=== PATIENT | male | born 1955 | race African-American/Black ===

== ENCOUNTER 2017-06-27 09:59 | Emergency (ER) | payer MEDICAID, MEDICARE ==
[2017-06-27 10:42] LABS: Bilirubin Negative (Negative); Blood, Urine Small (Negative); Clarity TURBID (Clear); Glucose, Urine (Dipstick) >=1000 mg/dL (Negative); Leukocyte Moderate (Negative); Nitrite Positive (Negative); Protein, Urine (Dipstick) Negative (Neg-Trace); Specific Gravity, Urine 1.035 (1.002-1.036); pH, Urine 6.5 (5.0-9.0)
[2017-06-27 10:44] LABS: Pathc Cast-AUWi Flag 0.95 (0-2.49)
[2017-06-27 10:45] LABS: Yeast-AUWi Flag 386.4 (0-25.0)
[2017-06-27 10:52] LABS: RBC/HPF 0-3 HPF (0-3)
[2017-06-27 10:53] LABS: Bacteria/HPF 3+ HPF (None Seen); Hyaline Casts/LPF NONE SEEN LPF (0-3 Hyaline); Squamous Epithelial 0-3 HPF (0-3); Yeast-All Forms None Seen HPF (None Seen)
[2017-06-27] MEDS ORDERED: Cephalexin 250 MG CAP ONE (11:27)
[2017-06-27] MEDS ORDERED: metFORMIN 500 MG TAB PO SCH (11:30)
== END 2017-06-27 11:54 | disposition home or self-care (01) ==
LOC: ERS 09:59
DX: N12 Tubulo-interstitial nephritis, not specified as acute or chronic (principal); E11.65 Type 2 diabetes mellitus with hyperglycemia; N40.0 Benign prostatic hyperplasia without lower urinary tract symptoms; I10 Essential (primary) hypertension; F17.210 Nicotine dependence, cigarettes, uncomplicated
CPT/HCPCS: 51701; 81001

== ENCOUNTER 2017-07-03 11:38 | Inpatient (IN) | payer MEDICARE, OTHER ==
[2017-07-03 13:08] LABS: #Lymphocytes 0.8 thou/uL (1.20-3.40); #Monocytes 0.6 thou/uL (0.11-0.59); #Neutrophils 14.2 thou/uL (1.40-6.50); %Basophils 0.1 % (0.0-1.0); %Eosinophils 0.2 % (0.0-10.0); %Lymphocytes 4.8 % (21.0-51.0); %Monocytes 3.7 % (0.0-10.0); %Neutrophils 91.1 % (42.0-75.0); Hemoglobin 12.5 g/dL (14.0-18.0); Mean Corpuscular HGB CONC 31.1 g/dL (32.0-36.0); Mean Corpuscular Hemoglobin 27.8 pg (27.0-31.0); Mean Corpuscular Volume 89.3 fl (80.0-94.0); Mean Platelet Volume 6.8 fL (7.4-10.4); Platelet Count 324 thou/uL (130-400); RBC Distribution Width 13.4 % (11.5-14.5); Red Blood Cell (RBC) Count 4.52 mill/uL (4.70-6.10); White Blood Cell (WBC) Count 15.6 thou/uL (4.8-10.8)
[2017-07-03 13:23] LABS: ALT (SGPT) 15 U/L (8-55); AST (SGOT) 19 U/L (5-34); Albumin 3.2 g/dL (3.4-4.8); Alkaline Phosphatase 91 U/L (40-150); Anion Gap 16 mmol/L (10-20); BUN (Urea Nitrogen) 12 mg/dL (8.4-25.7); Bilirubin, Total 0.5 mg/dL (0.2-1.2); Calc. Creatinine Clearance 0 mL/min (70-130); Calcium 9.3 mg/dL (7.8-10.44); Carbon Dioxide 21 mmol/L (23-31); Chloride 105 mmol/L (98-107); Estimated GFR-MDRD 74; Globulin 3.8 g/dL (2.4-3.5); Lipase 6 U/L (8-78); Magnesium 1.7 mg/dL (1.6-2.6); Phosphorus 2.8 mg/dL (2.3-4.7); Potassium 3.9 mmol/L (3.5-5.1); Sodium 138 mmol/L (136-145)
[2017-07-03 13:25] LABS: Glucose 598 mg/dL (80-115)
[2017-07-03 13:26] LABS: CKMB 1.1 ng/mL (0-6.6); Troponin I 0.028 ng/mL (< 0.028)
[2017-07-03] MEDS ORDERED: Insulin Regular 300 UNITS/3 ML VIAL ONE (13:40)
[2017-07-03] MEDS ORDERED: ISOVUE-370 76%-LOCM 1 ML ONE (14:02)
[2017-07-03 15:23] LABS: Anion Gap 12 mmol/L (10-20); BUN (Urea Nitrogen) 11 mg/dL (8.4-25.7); Calc. Creatinine Clearance 0 mL/min (70-130); Calcium 8.5 mg/dL (7.8-10.44); Carbon Dioxide 24 mmol/L (23-31); Chloride 106 mmol/L (98-107); Estimated GFR-MDRD 85; Glucose 419 mg/dL (80-115); Potassium 3.5 mmol/L (3.5-5.1); Sodium 138 mmol/L (136-145)
[2017-07-03 17:03] LABS: Bilirubin Negative (Negative); Blood, Urine Moderate (Negative); Clarity CLOUDY (Clear); Glucose, Urine (Dipstick) >=1000 mg/dL (Negative); Leukocyte Moderate (Negative); Nitrite Negative (Negative); Protein, Urine (Dipstick) Negative (Neg-Trace); Specific Gravity, Urine 1.021 (1.002-1.036); Urobilinogen 0.2 mg/dL (0.2-1.0)
[2017-07-03 17:15] LABS: Bacteria/HPF 1+ HPF (None Seen); Hyaline Casts/LPF 0-3 HYALINE CAST LPF (0-3 Hyaline); Pathc Cast-AUWi Flag 0.27 (0-2.49); Squamous Epithelial None Seen HPF (0-3)
[2017-07-03 17:16] LABS: Yeast-AUWi Flag 60.9 (0-25.0)
[2017-07-03 17:26] LABS: RBC/HPF 0-3 HPF (0-3); Yeast-All Forms None Seen HPF (None Seen)
[2017-07-03] MEDS ORDERED: Heparin 1,000 UNITS/ML VIAL ONE (17:30)
[2017-07-03] MEDS ORDERED: Insulin Detemir 100 UNITS/ML 15 UNITS in Pre-Filled Syringe 1 EACH SC SCH ×2 (18:30→22:15)
[2017-07-03] MEDS ORDERED: cefTRIAXone\\ROCEPHIN 1 GM, Syringe 0.4 ML in Sterile Water 9.6 ML SLOW IVP SCH (19:00)
[2017-07-03] MEDS ORDERED: Acetaminophen 500 MG TAB ONE (19:52)
--- NOTE | 2017-07-03 20:42 | CT ---
EXAM: ABDOMEN CT WITH CONTRAST PELVIC CT WITH CONTRAST 07/03/17 HISTORY: Abdominal pain. Polyuria times several weeks. Polyphagia and polydipsia. COMPARISON: 07/10/14. TECHNIQUE: Abdomen and pelvic CT are performed with IV contrast. Enteric contrast was also administered. Coronal reformatted images are submitted for interpretation. FINDINGS: Atelectatic changes in the lung bases. Heart size is within normal limits. No pericardial effusion. T he visualized aorta has an overall normal caliber. Symmetric attenuation of the psoas muscles. Intra and extrahepatic portal vein is patent. The liver, spleen, and adrenal glands have appropriate enhancement. There is atrophy of the pancreas. No obvious inflammation. No gastrohepatic, retrocrural or periportal lymphadenopathy. No mesenteric mass, lymphadenopathy or free air. There is a small amount of fluid in Schaefer's pouch . There is fluid in the right pericolic gutter and there is stranding and fluid in the right perineph jeannie space. The etiology of this fluid is uncertain but may be secondary to the right kidney. There is mild prominence of the right intrarenal collecting system and right renal pelvis. The proximal right ureter also appears to be slightly prominent. No evidence of an obstructive calculus in the right in tra or extrarenal collecting system. Left intra and extrarenal collecting system is unremarkable. The re is symmetric enhancement of the kidneys. Limited evaluation of the gastric mucosa, duodenum and proximal small bowel loops. Mid small bowel lo ops appear to be unremarkable. Evaluation of the alimentary canal is limited by motion degradation. S uggestion of a normal caliber appendix. Ileocecal junction is unremarkable. Fecal material and contra st is noted throughout the colon. No obvious colon abnormality. Again, limited evaluation due to laura on degradation. There is a moderate amount of fecal material throughout the colon. Correlate clinical ly for constipation. PELVIC CT: There is enlarged prostate gland measuring 4.2 x 6.4 cm. There is mass effect upon the floor of the u rinary bladder. Mild mucosal thickening of the floor of the urinary bladder which is nonspecific. Non emergent cystoscopy is recommended. No pelvic mass, lymphadenopathy, free air of free fluid. There are no lytic or blastic lesions in the osseous structures. IMPRESSION: 1. Predominantly right abdominal fluid of uncertain etiology. It is presumed that the inflammato ry change is centered about the right kidney. Correlate clinically for an ascending urinary tract inf ection. There is mild dilatation of the right intrarenal collecting system. The possibility of a rece ntly passed calculus cannot be excluded. Correlate clinically. Better interrogation with retrograde I [employer]OWS TECH[employer]ICAL [employer]IST or CT urogram can be performed. 2. Limited evaluation of the alimentary canal. Copious amount of fecal material is suggested thr oughout the colon. Correlate clinically for constipation. POS: PPP
[2017-07-03] MEDS ORDERED: Acetaminophen 650 MG Suppository PR PRN (21:39)
[2017-07-03] MEDS ORDERED: Ondansetron ODT 4 MG TAB PO PRN (21:39)
[2017-07-03] MEDS ORDERED: HumaLOG 300 UNITS/3 ML VIAL SC PRN ×2 (21:39)
[2017-07-03] MEDS ORDERED: Dextrose 50% Abboject 50 ML SYRINGE SLOW IVP PRN (21:39)
[2017-07-03] MEDS ORDERED: Dextrose 5% in Water 1,000 ML IV PRN (21:39)
[2017-07-03] MEDS ORDERED: Bisacodyl 5 MG TAB PO PRN (21:39)
[2017-07-03] MEDS ORDERED: Ondansetron HCl/PF 4 MG/2 ML Vial IVP PRN (21:39)
[2017-07-03] MEDS ORDERED: Docusate 100 MG CAP PO SCH (22:15)
[2017-07-03 22:29] VITALS: BMI 21.7
[2017-07-03] MEDS: Sodium Chloride 0.9% 1,000 ML IV SCH (22:42)
[2017-07-03] MEDS: Docusate 100 MG CAP PO SCH (22:42)
[2017-07-03] MEDS: Acetaminophen 325 MG TAB PO PRN (22:42)
[2017-07-03] MEDS: Insulin Detemir 100 UNITS/ML 15 UNITS in Pre-Filled Syringe 1 EACH SC SCH (22:44)
--- NOTE | 2017-07-03 22:50 | HP ---
PRIMARY CARE PHYSICIAN: Suyz Degroot M.D. CHIEF COMPLAINT: Abdominal pain and hyperglycemia. HISTORY OF PRESENT ILLNESS: This is a 62-year-old -[place] male, insulin-dependent diabetic with a history of previous DKA episodes. He was brought in by EMS. He reported some abdominal pain along with problems with urination though he was not able to give more specific details, did say even peeing a lot and eating a lot, sometimes will state that he has had some pain with urination, other times deny it, could not give a length of time that has been going on for. The patient was brought in by EMS and noted to have a blood sugar greater than 400. He was also constantly asking for water, he was given a liter of normal saline on the way in. In the emergency room, patient had persistent hyperglycemia. He got IV insulin along with a couple of liters of fluid with some mild improvement in the blood sugars, though they started to come back up again. He also was noted to have some tenderness to palpation of his abdomen, but nothing focal. He was found to have no acidosis or anion gap. His urinalysis did show too many to count white blood cells as well as lots of glucose and his CT scan of the abdomen did show some mild stranding around the right kidney and ureter which were slightly prominent. He also had a leukocytosis and was mildly tachycardic consistent with a UTI/pyelonephritis with sepsis. PAST MEDICAL HISTORY: The patient is unable to give past medical history and does not answer most questions, mostly just asked for water to drink. Most of the past medical history is taken from the ER chart and previous records when he was admitted here multiple times back in 2015 for diabetic ketoacidosis. 1. Hypertension. 2. Diabetes mellitus type 2, insulin-dependent. 3. Dyslipidemia. 4. Benign prostatic hyperplasia. 5. Cardiomyopathy. PAST SURGICAL HISTORY: 1. Bilateral knee surgery. 2. Right ankle surgery. 3. Tonsillectomy. 4. Colostomy with reversal. 5. Right finger surgery. PAST PSYCHIATRIC HISTORY: None. SOCIAL HISTORY: The patient smokes a half pack per day and drinks less than 5 drinks per day. He does use cocaine. FAMILY HISTORY: No significant family history of coronary artery disease or cancer. MEDICATIONS: 1. Lantus 15 units subcutaneously twice per day 2. Metformin 500mg po twice per day REVIEW OF SYSTEMS: Unable to obtain secondary to patient's refusal or possibly altered mental status. See HPI for other things I was able to obtain. PHYSICAL EXAMINATION: VITAL SIGNS: Blood pressure 137/74, pulse 95 down from 103 previously, respirations 19 down from 24 on presentation. Temperature 98.7, O2 sat 98% on room air. GENERAL: The patient is currently denying any significant pain. This is a thin male who appears mildly confused, but in no respiratory distress. HEENT: Pupils equal, round, and reactive to light. Oropharynx with dry mucous membranes. NECK: Supple, no lymphadenopathy, no thyroid nodules or enlargement, no JVD. HEART: Regular rate and rhythm, no murmurs, rubs or gallops. LUNGS: Clear to auscultation bilaterally, no wheezes, crackles or rhonchi. ABDOMEN: Soft, diffusely mild tenderness to palpation with mild guarding, but no rebound tenderness and he has normoactive bowel sounds, no masses palpable. EXTREMITIES: Thin extremities with good pulses and no significant deformities. SKIN: No rashes or other lesions noted. NEUROLOGIC: He appears to be moving all of his extremities equally and has no facial droop. He will follow basic commands, but nothing complicated. LABORATORY DATA: CBC with a white blood cell count of 15.6, neutrophil predominance of 91%. Hemoglobin 12, hematocrit 40, platelet count 324. Complete metabolic panel initially notable for carbon dioxide of 21, glucose of 598, albumin of 3.2. Repeat basic metabolic panel later showed a carbon dioxide of 24. No anion gap, glucose down to 419, cardiac marker set negative x1. Urinalysis did show greater than 1000 glucose, moderate blood, moderate leukocyte esterase with greater than 50 to too numerous to count white blood cells, and 1+ bacteria. Serum was positive for beta hydroxybutyrate mild elevation at 0.9. Abdomen CT and pelvis that showed the results as above. ASSESSMENT AND PLAN: 1. Urinary tract infection with right-sided pyelonephritis. The patient has not received Rocephin, we will draw blood cultures before they give that first dose in the emergency room. I have also ordered a urine culture. I have also given another liter of fluid down here in the emergency room as he still looks clinically a little bit dry. 2. Sepsis. Secondary to #1 3. Diabetes mellitus type 2 with hyperglycemia. We have given the patient 15 units of Lantus in the emergency room. We will continue it twice a day in the hospital and will get fingerstick blood sugars q.a.c. and at bedtime along with a moderate insulin sliding scale. 4. Metabolic encephalopathy. Patient seems a little bit confused, although according to the nurse, he is very aggressive and ewing with him, he actually will respond and provide more information and respond better. His altered mental status is likely secondary to his infection and should improve with fluids and antibiotics. 5. History of cocaine abuse. We will check a urine drug screen as this also may be a source of altered mental status. 6. Gastrointestinal prophylaxis. Put the patient on Pepcid twice a day. 7. Deep venous thrombosis prophylaxis, put patient on Lovenox. 8. Code status, unable to clarify this with the patient at this time due to his altered mental status and no family present. This will need to be elucidated better as his mental status clears in the hospital. ROXANNA
[2017-07-04 05:10] LABS: Amphetamine Not Detected (NotDetected); Barbiturates Screen Not Detected (NotDetected); Benzodiazepine Screen Not Detected (NotDetected); Cocaine Metabolite Screen Not Detected (NotDetected); Medtox Control Line Valid? VALID (VALID); Medtox Reader # READER 1; Methadone Not Detected (NotDetected); Methamphetamine Not Detected (NotDetected); Opiate Screen Not Detected (NotDetected); Oxycodone Screen Not Detected (NotDetected); Phencyclidine (PCP) Not Detected (NotDetected); THC/Cannabinoid Screen Not Detected (NotDetected); Tricyclic Screen Not Detected (NotDetected)
[2017-07-04 05:14] LABS: #Lymphocytes 1.3 thou/uL (1.20-3.40); #Monocytes 0.7 thou/uL (0.11-0.59); #Neutrophils 10.2 thou/uL (1.40-6.50); %Basophils 0.3 % (0.0-1.0); %Eosinophils 0.4 % (0.0-10.0); %Lymphocytes 10.7 % (21.0-51.0); %Monocytes 5.6 % (0.0-10.0); Hemoglobin 11.2 g/dL (14.0-18.0); Mean Corpuscular HGB CONC 30.4 g/dL (32.0-36.0); Mean Corpuscular Hemoglobin 27.1 pg (27.0-31.0); Mean Corpuscular Volume 89.1 fl (80.0-94.0); Platelet Count 263 thou/uL (130-400); RBC Distribution Width 13.6 % (11.5-14.5); Red Blood Cell (RBC) Count 4.15 mill/uL (4.70-6.10); White Blood Cell (WBC) Count 12.3 thou/uL (4.8-10.8)
[2017-07-04 05:24] LABS: Anion Gap 12 mmol/L (10-20); BUN (Urea Nitrogen) 9 mg/dL (8.4-25.7); Calc. Creatinine Clearance 120 mL/min (70-130); Calcium 8.4 mg/dL (7.8-10.44); Carbon Dioxide 24 mmol/L (23-31); Chloride 108 mmol/L (98-107); Estimated GFR-MDRD Greater than 90; Glucose 145 mg/dL (80-115); Potassium 3.5 mmol/L (3.5-5.1); Sodium 140 mmol/L (136-145)
[2017-07-04] MEDS: Insulin Detemir 100 UNITS/ML 15 UNITS in Pre-Filled Syringe 1 EACH SC SCH ×2 (09:23→20:50)
[2017-07-04] MEDS: Docusate 100 MG CAP PO SCH (09:23)
[2017-07-04] MEDS: Enoxaparin Sodium 40 MG/0.4 ML SYRINGE SC SCH (09:23)
[2017-07-04] MEDS: Sodium Chloride 0.9% 1,000 ML IV SCH ×2 (09:24→20:49)
[2017-07-04] MEDS ORDERED: Chloraseptic Spray 180 ml Bottle PO PRN (10:12)
[2017-07-04] MEDS ORDERED: Calcium Carbonate 500 MG ChewTAB PO PRN (10:12)
[2017-07-04] MEDS ORDERED: Artificial Tears 18 DROP/0.9 ML EA EYE PRN (10:12)
[2017-07-04] MEDS ORDERED: hydrALAZINE 20 MG/ML VIAL SLOW IVP PRN (10:12)
[2017-07-04] MEDS ORDERED: Mag-Al 1200 mg/1200 mg/30 ML UDCUP PO PRN (10:12)
[2017-07-04] MEDS ORDERED: Milk Of Magnesia 30 ML UDCUP PO PRN (10:12)
[2017-07-04] MEDS ORDERED: Diabetic Tussin 200 MG/10 ML UDCUP PO PRN (10:12)
[2017-07-04] MEDS ORDERED: HYDROcodone/Acetaminophen 5/325 mg Tablet PO PRN (10:12)
[2017-07-04] MEDS ORDERED: Loratadine 10 MG TAB PO PRN (10:12)
[2017-07-04] MEDS ORDERED: Eucerin (Mineral Oil/Petrolatum,White) 30 gm Jar TOP PRN (10:12)
[2017-07-04] MEDS ORDERED: Loperamide HCl 2 MG CAP PO PRN (10:12)
[2017-07-04] MEDS ORDERED: Sodium Chloride 0.65% Nasal 44 ML BOT EA NARE PRN (10:12)
[2017-07-04] MEDS ORDERED: Temazepam 15 MG CAP PO PRN (10:12)
[2017-07-04] MEDS ORDERED: cefTRIAXone\\ROCEPHIN 1 GM in Sodium Chloride 0.9% 100 ML IVPB SCH (10:15)
[2017-07-04] MEDS ORDERED: cefTRIAXone\\ROCEPHIN 1 GM, Syringe 0.4 ML in Sterile Water 9.6 ML SLOW IVP SCH (11:00)
--- NOTE | 2017-07-04 11:48 | PDOC.PN ---
- Subjective Encounter Start Date: 07/04/17 Encounter Start Time: 08:50 -: old records requested/rev Patient seen and examined. No new complaints. No overnight events has back pain - Objective Resuscitation Status: Resuscitation Status FULL:Full Resuscitation MAR Reviewed: Yes Vital Signs & Weight: Vital Signs (12 hours) Temp Pulse Resp BP Pulse Ox 07/04/17 08:00 98.5 F 87 16 99 07/04/17 07:22 98.5 F 87 16 109/66 99 07/04/17 04:00 98.8 F 87 18 128/75 97 07/04/17 00:00 99.0 F 84 20 123/70 98 Weight Weight 178 lb 6 oz Result Diagrams: 07/04/17 04:26 07/04/17 04:26 Additional Labs: Accuchecks 07/04/17 07/04/17 07/03/17 04:00 01:57 22:43 POC Glucose 174 H 217 H 363 H 07/03/17 20:23 POC Glucose 327 H Radiology Reviewed by me: Yes Phys Exam - Physical Examination Constitutional: NAD HEENT: PERRLA, moist MMs, sclera anicteric Neck: no JVD, supple Respiratory: no wheezing, no rales, no rhonchi Cardiovascular: RRR, no significant murmur, no rub Gastrointestinal: soft, non-tender, no distention, positive bowel sounds cva tenderness on right side Musculoskeletal: no edema, pulses present Neurological: non-focal, normal sensation, moves all 4 limbs Psychiatric: normal affect, A&O x 3 Skin: no rash, normal turgor Dx/Plan (1) Hyperglycemia due to type 2 diabetes mellitus Code(s): E11.65 - TYPE 2 DIABETES MELLITUS WITH HYPERGLYCEMIA Status: Acute (2) UTI (urinary tract infection) Status: Acute Qualifiers: Urinary tract infection type: acute pyelonephritis Qualified Code(s): N10 - Acute pyelonephritis (3) BPH (benign prostatic hyperplasia) Code(s): N40.0 - BENIGN PROSTATIC HYPERPLASIA WITHOUT LOWER URINRY TRACT SYMP Status: Chronic (4) DM type 2 (diabetes mellitus, type 2) Status: Chronic (5) HTN (hypertension) Code(s): I10 - ESSENTIAL (PRIMARY) HYPERTENSION Status: Chronic - Plan cont current plan of care, continue antibiotics * continue rocephin and levaquin * continue IVF * will resume selected home meds * will control his diabetes * medication reviewed as below * symptomatic treatment * follow culture. Review of Systems - Review of Systems Constitutional: negative: fever, chills, sweats, weakness, malaise, other Eyes: negative: Pain, Vision Change, Conjunctivae Inflammation, Eyelid Inflammation, Redness, Other ENT: negative: Ear Pain, Ear Discharge, Nose Pain, Nose Discharge, Nose Congestion, Mouth Pain, Mouth Swelling, Throat Pain, Throat Swelling, Other Respiratory: negative: Cough, Dry, Shortness of Breath, Hemoptysis, SOB with Excertion, Pleuritic Pain, Sputum, Wheezing Cardiovascular: negative: chest pain, palpitations, orthopnea, paroxysmal nocturnal dyspnea, edema, light headedness, other Gastrointestinal: negative: Nausea, Vomiting, Abdominal Pain, Diarrhea, Constipation, Melena, Hematochezia, Other Genitourinary: negative: Dysuria, Frequency, Incontinence, Hematuria, Retention , Other Musculoskeletal: Back Pain. negative: Neck Pain, Shoulder Pain, Arm Pain, Hand Pain, Leg Pain, Foot Pain, Other - Medications/Allergies Allergies/Adverse Reactions: Allergies Allergy/AdvReac Type Severity Reaction Status Date / Time milk Allergy ULCERS Verified 07/03/17 22:26 Medications: Current Medications Acetaminophen (Tylenol) 650 mg PO Q4H PRN PRN Reason: Headache/Fever or Pain Last Admin: 07/03/17 22:42 Dose: 650 mg Hydrocodone Bitart/Acetaminophen ([place] 5/325) 1 tab PO Q4H PRN PRN Reason: Moderate Pain (4-6) Al Hydroxide/Mg Hydroxide (Maalox) 15 ml PO Q4H PRN PRN Reason: Heartburn or Indigestion Artificial Tears (Tears Naturale) 0 drop EA EYE PRN PRN PRN Reason: Dry Eyes Bisacodyl (Dulcolax) 10 mg PO DAILYPRN PRN PRN Reason: Constipation Calcium Carbonate (Tums) 1,000 mg PO Q4H PRN PRN Reason: Heartburn or Indigestion Dextrose/Water (Dextrose 50%) 25 gm SLOW IVP PRN PRN PRN Reason: Hypoglycemia Enoxaparin Sodium (Lovenox) 40 mg SC 0900 MÓNICA Last Admin: 07/04/17 09:23 Dose: 40 mg Famotidine (Pepcid) 20 mg PO BID MÓNICA Glucagon (Glucagon) 1 mg IM PRN PRN PRN Reason: Hypoglycemia Guaifenesin (Robitussin Sf) 200 mg PO Q4H PRN PRN Reason: Cough Hydralazine HCl (Apresoline) 10 mg SLOW IVP Q4H PRN PRN Reason: Systolic BP > 180 Dextrose/Water (D5w) 1,000 mls @ 0 mls/hr IV .Q0M PRN; As Directed PRN Reason: Hypoglycemia Sodium Chloride (Normal Saline 0.9%) 1,000 mls @ 100 mls/hr IV .Q10H [facility] Last Admin: 07/04/17 09:24 Dose: 1,000 mls Insulin Detemir 15 units/ (Miscellaneous Medication) 0.15 mls @ 0 mls/hr SC HS [facility] Last Admin: 07/03/17 22:44 Dose: Not Given Insulin Detemir 15 units/ (Miscellaneous Medication) 0.15 mls @ 0 mls/hr SC QAM [facility] Last Admin: 07/04/17 09:23 Dose: 0.15 mls Levofloxacin 500 mg/ Device 100 mls @ 100 mls/hr IVPB Q24HR [facility] Ceftriaxone Sodium 1 gm/ (Syringe 0.4 ml/ Sterile Water) 10 mls @ 120 mls/hr SLOW IVP Q24HR [facility] Insulin Human Lispro (Humalog) 0 units SC .MODERATE SLIDING SC PRN PRN Reason: Moderate Correctional Scale Insulin Human Lispro (Humalog) 0 units SC .BEDTIME SLIDING SC PRN PRN Reason: Bedtime Correctional Scale Last Admin: 07/03/17 22:43 Dose: 5 unit Loperamide HCl (Imodium) 2 mg PO PRN PRN PRN Reason: Diarrhea/Loose Stools Loratadine (Claritin) 10 mg PO DAILYPRN PRN PRN Reason: Sinus Symptoms Magnesium Hydroxide (Milk Of Magnesium) 30 ml PO DAILYPRN PRN PRN Reason: Constipation Metformin HCl (Glucophage) 500 mg PO BID-[facility] Mineral Oil/White Petrolatum (Eucerin Cream) 0 gm TOP BIDPRN PRN PRN Reason: Dry Skin Ondansetron HCl (Zofran Odt) 4 mg PO Q6H PRN PRN Reason: Nausea/Vomiting Ondansetron HCl (Zofran) 4 mg IVP Q6H PRN PRN Reason: Nausea/Vomiting Phenol (Chloraseptic [place] 180 Ml Bot) 0 ml PO PRN PRN PRN Reason: Sore Throat Sodium Chloride ([place] Nasal [place] 0.65%) 0 ml EA NARE QIDPRN PRN PRN Reason: Nasal Congestion Sodium Chloride (Flush - Normal Saline) 10 ml IVF Q12HR MÓNICA Sodium Chloride (Flush - Normal Saline) 10 ml IVF PRN PRN PRN Reason: Saline Flush Temazepam (Restoril) 15 mg PO HSPRN PRN PRN Reason: Insomnia
[2017-07-04] MEDS: metFORMIN 500 MG TAB PO SCH (16:34)
[2017-07-04] MEDS: Famotidine 20 MG TAB PO SCH (20:48)
[2017-07-05] MEDS: Acetaminophen 325 MG TAB PO PRN (01:09)
[2017-07-05] MEDS: Sodium Chloride 0.9% 1,000 ML IV SCH ×3 (01:09→21:07)
[2017-07-05] MEDS: Enoxaparin Sodium 40 MG/0.4 ML SYRINGE SC SCH (08:17)
[2017-07-05] MEDS: metFORMIN 500 MG TAB PO SCH (08:17)
[2017-07-05] MEDS: Famotidine 20 MG TAB PO SCH ×2 (08:17→21:02)
[2017-07-05] MEDS: Insulin Detemir 100 UNITS/ML 15 UNITS in Pre-Filled Syringe 1 EACH SC SCH (08:17)
--- NOTE | 2017-07-05 11:58 | PDOC.PN ---
- Subjective Encounter Start Date: 07/05/17 Encounter Start Time: 08:35 Subjective: no abd pain -: feels better - Objective Resuscitation Status: Resuscitation Status FULL:Full Resuscitation MAR Reviewed: Yes Vital Signs & Weight: Vital Signs (12 hours) Temp Pulse Resp BP Pulse Ox 07/05/17 08:00 98.7 F 64 18 138/80 99 07/05/17 06:31 99.0 F 71 18 113/65 97 07/05/17 06:07 98.3 F 07/05/17 01:33 102.2 F H 86 18 163/82 H 98 Weight Weight 178 lb 6 oz I&O: 07/04/17 07/05/17 07/06/17 06:59 06:59 06:59 Intake Total 2820 Output Total 2 Balance 2818 Result Diagrams: 07/04/17 04:26 07/04/17 04:26 Additional Labs: Accuchecks 07/05/17 07/05/17 07/04/17 04:17 01:14 20:30 POC Glucose 134 H 108 91 07/04/17 07/04/17 16:49 11:32 POC Glucose 63 L 94 Phys Exam - Physical Examination HEENT: PERRLA, moist MMs Neck: no JVD, supple Respiratory: no wheezing, no rales Cardiovascular: RRR, no significant murmur Gastrointestinal: soft, non-tender, positive bowel sounds Musculoskeletal: no edema, pulses present Neurological: non-focal, moves all 4 limbs Psychiatric: A&O x 3 Dx/Plan (1) Bacteremia due to Escherichia coli Code(s): R78.81 - BACTEREMIA Status: Acute (2) Pyelonephritis due to Escherichia coli Code(s): N12 - TUBULO-INTERSTITIAL NEPHRITIS, NOT SPCF ACUTE OR CHRONIC; B96.20 - UNSP ESCHERICHIA COLI THE CAUSE OF DISEASES CLASSD ELSWHR Status: Acute (3) Sepsis Code(s): A41.9 - SEPSIS, UNSPECIFIED ORGANISM Status: Acute Qualifiers: Sepsis type: Escherichia coli Qualified Code(s): A41.51 - Sepsis due to Escherichia coli [E. coli] (4) UTI (urinary tract infection) Status: Acute Qualifiers: Urinary tract infection type: acute pyelonephritis Qualified Code(s): N10 - Acute pyelonephritis (5) BPH (benign prostatic hyperplasia) Code(s): N40.0 - BENIGN PROSTATIC HYPERPLASIA WITHOUT LOWER URINRY TRACT SYMP Status: Chronic Qualifiers: Lower urinary tract symptom presence: symptoms present Lower urinary tract symptom detail: incomplete bladder emptying Qualified Code(s): N40.1 - Benign prostatic hyperplasia with lower urinary tract symptoms; R39.14 - Feeling of incomplete bladder emptying; R39.14 - Feeling of incomplete bladder emptying (6) DM type 2 (diabetes mellitus, type 2) Status: Chronic Qualifiers: Diabetes mellitus complication status: with unspecified complications Diabetes mellitus prepared foods associate insulin use: without prepared foods associate use Qualified Code( s): E11.8 - Type 2 diabetes mellitus with unspecified complications Comment: labile (7) HTN (hypertension) Code(s): I10 - ESSENTIAL (PRIMARY) HYPERTENSION Status: Chronic Qualifiers: Hypertension type: essential hypertension Qualified Code(s): I10 - Essential (primary) hypertension - Plan change antibiotics to meropenem due to resistance -: post void residual was 160mls this am -: add flomax bid, urology consultation -: will likely need picc line, dc metformin and am levemir -: cm is working on getting him swing bed * . Review of Systems - Medications/Allergies Allergies/Adverse Reactions: Allergies Allergy/AdvReac Type Severity Reaction Status Date / Time milk Allergy ULCERS Verified 07/03/17 22:26 Medications: Current Medications Acetaminophen (Tylenol) 650 mg PO Q4H PRN PRN Reason: Headache/Fever or Pain Last Admin: 07/05/17 01:09 Dose: 650 mg Hydrocodone Bitart/Acetaminophen ([place] 5/325) 1 tab PO Q4H PRN PRN Reason: Moderate Pain (4-6) Al Hydroxide/Mg Hydroxide (Maalox) 15 ml PO Q4H PRN PRN Reason: Heartburn or Indigestion Artificial Tears (Tears Naturale) 0 drop EA EYE PRN PRN PRN Reason: Dry Eyes Bisacodyl (Dulcolax) 10 mg PO DAILYPRN PRN PRN Reason: Constipation Calcium Carbonate (Tums) 1,000 mg PO Q4H PRN PRN Reason: Heartburn or Indigestion Dextrose/Water (Dextrose 50%) 25 gm SLOW IVP PRN PRN PRN Reason: Hypoglycemia Enoxaparin Sodium (Lovenox) 40 mg SC 0900 MÓNICA Last Admin: 07/05/17 08:17 Dose: 40 mg Famotidine (Pepcid) 20 mg PO BID [facility] Last Admin: 07/05/17 08:17 Dose: 20 mg Glucagon (Glucagon) 1 mg IM PRN PRN PRN Reason: Hypoglycemia Guaifenesin (Robitussin Sf) 200 mg PO Q4H PRN PRN Reason: Cough Hydralazine HCl (Apresoline) 10 mg SLOW IVP Q4H PRN PRN Reason: Systolic BP > 180 Dextrose/Water (D5w) 1,000 mls @ 0 mls/hr IV .Q0M PRN; As Directed PRN Reason: Hypoglycemia Sodium Chloride (Normal Saline 0.9%) 1,000 mls @ 100 mls/hr IV .Q10H [facility] Last Admin: 07/05/17 01:09 Dose: 1,000 mls Insulin Detemir 15 units/ (Miscellaneous Medication) 0.15 mls @ 0 mls/hr SC HS [facility] Last Admin: 07/04/17 20:50 Dose: Not Given Insulin Detemir 15 units/ (Miscellaneous Medication) 0.15 mls @ 0 mls/hr [facility] Last Admin: 07/05/17 08:17 Dose: 0.15 mls Meropenem 1 gm/ Sterile Water 20 mls @ 240 mls/hr SLOW IVP Q8HR [facility] Insulin Human Lispro (Humalog) 0 units SC .MODERATE SLIDING SC PRN PRN Reason: Moderate Correctional Scale Insulin Human Lispro (Humalog) 0 units SC .BEDTIME SLIDING SC PRN PRN Reason: Bedtime Correctional Scale Last Admin: 07/03/17 22:43 Dose: 5 unit Loperamide HCl (Imodium) 2 mg PO PRN PRN PRN Reason: Diarrhea/Loose Stools Loratadine (Claritin) 10 mg PO DAILYPRN PRN PRN Reason: Sinus Symptoms Magnesium Hydroxide (Milk Of Magnesium) 30 ml PO DAILYPRN PRN PRN Reason: Constipation Metformin HCl (Glucophage) 500 mg PO BID-[facility] Last Admin: 07/05/17 08:17 Dose: 500 mg Mineral Oil/White Petrolatum (Eucerin Cream) 0 gm TOP BIDPRN PRN PRN Reason: Dry Skin Ondansetron HCl (Zofran Odt) 4 mg PO Q6H PRN PRN Reason: Nausea/Vomiting Ondansetron HCl (Zofran) 4 mg IVP Q6H PRN PRN Reason: Nausea/Vomiting Phenol (Chloraseptic [place] 180 Ml Bot) 0 ml PO PRN PRN PRN Reason: Sore Throat Sodium Chloride ([place] Nasal [place] 0.65%) 0 ml EA NARE QIDPRN PRN PRN Reason: Nasal Congestion Sodium Chloride (Flush - Normal Saline) 10 ml IVF Q12HR MÓNICA Last Admin: 07/05/17 08:18 Dose: Not Given Sodium Chloride (Flush - Normal Saline) 10 ml IVF PRN PRN PRN Reason: Saline Flush Tamsulosin HCl (Flomax) 0.4 mg PO BID MÓNICA Temazepam (Restoril) 15 mg PO HSPRN PRN PRN Reason: Insomnia
[2017-07-05] MEDS ORDERED: Meropenem 1 GM in Sodium Chloride 0.9% 100 ML IVPB SCH (14:00)
[2017-07-05] MEDS: Meropenem 1 GM in Sterile Water 20 ML SLOW IVP SCH ×2 (14:56→21:08)
[2017-07-05] MEDS ORDERED: Metoclopramide HCl 10 MG TAB PO SCH (17:45)
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
[2017-07-05] MEDS: Tamsulosin HCl 0.4 MG CAP PO SCH (21:02)
--- NOTE | 2017-07-06 01:30 | CON ---
DATE OF CONSULTATION REQUESTING REPORT: 07/05/2017 REASON FOR CONSULTATION: Incomplete bladder emptying, right-sided pyelonephritis and benign prostatic hyperplasia. PROBLEM LIST: Diabetes mellitus type 2, insulin dependent ([facility]), E11.9, Z79.4 Pyelonephritis, acute, N10 Other male erectile dysfunction, N52.8 Hypertrophy of prostate with urinary obstruction, N40.1, N13.8 Urinary retention, R33.9 Sepsis due to Escherichia coli ([facility]), A41.51 E-coli UTI, N39.0, B96.20 HISTORY OF PRESENT ILLNESS: Mr. Kuldip Louis is a 62-year-old - Egyptian male with diabetes mellitus and history of polysubstance abuse. The patient presented to the emergency department altered mental status on this admission. I am acquainted with Mr. Louis from coverage of him previously for Dr. Hernandes several years ago. Mr. Louis has previously established with Dr. Hernandes for his history of BPH. He apparently underwent a previous prostate needle biopsy by Dr. Hernandes, which he reports was negative for cancer. The patient apparently received some type of hormone suppression shot or other medication for his enlarged prostate gland. He does not report that improved his voiding function at all. He has been traveling somewhat between here in [place], but does not report that he has undergone recent urologic evaluation. The patient has number of longstanding medical issues associated with his history of diabetes mellitus including a 27-year history erectile dysfunction by his report. He blames loss of his marriage due to that. The patient has current issues with incomplete bladder emptying, but is refusing catheterization. The patient has not been taking medications for enlarged prostate at home and this may be contributed to his current presentation. PAST MEDICAL HISTORY: 1. Benign prosthetic hyperplasia. 2. Hypertension. 3. Diabetes mellitus type 2, insulin-dependent. 4. History of polysubstance abuse including current cigarette smoking, cocaine use and past history of alcoholism with up to 5 beverages per day. PAST SURGICAL HISTORY: He does not report previous surgeries. SOCIAL HISTORY: The patient is a current one half pack per day cigarette smoker. He has used cocaine in the past. His drug screen on this admission is negative. REVIEW OF SYSTEMS: Genitourinary: The patient reports that he has continuous incontinence and has been using incontinence pads for several months. The patient reports that he has a sensation of urinary frequency with urine dribbling out at all times. He does not report difficulty with actual voiding; however. He does not report blood in his urine. Neurologic: The patient presented with altered mental status, appears to have GCS 15 status at the present time. He was evaluated supine in bed. He does appear to have the ability to move all of his extremities and not reporting any neurologic signs or symptoms today. Cardiac: Negative. Pulmonary: He is a current smoker, but otherwise negative history. Endocrinologic: Current diabetic type 2 with current diabetic crisis, admitted with hyperglycemia. Gastrointestinal: No complaints other than current diarrhea symptoms. Musculoskeletal: No complaints. Review of systems otherwise negative x12 systems. PHYSICAL EXAMINATION: VITAL SIGNS: The patient is currently afebrile with temperature of 99.3. At admission, the patient was febrile with temperature of 102.2 F. Pulse is 83, respirations 20, blood pressure is 175/89. HEAD, EYES, EARS, NOSE, AND THROAT: Extraocular movements are intact. Sclerae are anicteric. Oropharynx is clear. NECK: Supple. LUNGS: Clear to auscultation bilaterally. CARDIOVASCULAR: Regular rate and rhythm without murmur, rub or gallop. ABDOMEN: Soft and nontender. I do not appreciate any masses palpable in the patient's abdomen. BACK: No costovertebral angle tenderness on percussion of the costovertebral angles on either side. GENITOURINARY: Phallus is without external lesion. Urethral meatus appears adequate. Testes appear benign. Palpation of inguinal canals finds no evidence of hernia. RECTAL: Digital rectal examination finds a massive prostate gland, which was too large for me to assess the upper aspect. It is relatively indurated in character and would be rated as suspicious. MUSCULOSKELETAL: No significant findings. Review of the patient's chart finds the patient has had previous bilateral knee surgeries, a right ankle surgery, a tonsillectomy, colostomy with reversal and right finger surgery. LABORATORY FINDINGS: The patient's white count on admission was 15,600 and has decreased to 12,300 on 07/04/2017. ANC is improved from 14.2 thousand to 10.2 thousand. Blood urea nitrogen is 9 with creatinine of 0.73. The patient's last PSA test on our system was obtained on 07/09/2014 and returned at 3.05 and not able to identify any previous pathology from prostate needle biopsies and perhaps this was handled through Dr. Hernandes office. I did obtain during the patient's previous evaluation a prostate needle biopsy on this patient and this returned with only benign prostate tissue, not cancer. The pathology specimen in that case was obtained on 07/13/2014 and returned left and right prostate specimens without evidence of prostate cancer. ASSESSMENT AND PLAN: 1. Incomplete bladder emptying. The patient is refusing Ochoa catheterization in this case. I would recommend maximal medical therapy. Flomax may be increased to twice daily dosage. The patient should be started on finasteride at 5 mg and patient's antibiotics should be continued as if this is an acute prostatitis episode. Note, the patient does have massive benign prostatic hyperplasia. The patient reports that he is desirous of surgery, but he clearly has incontinence at the present time. 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 The patient may also have neurologic causes secondary to his diabetes mellitus type 2. 2. Infectious Disease concerns and current sepsis. The patient has had Escherichia coli isolated from his blood an additional gram negative sean culture from his blood and he has Escherichia coli in his urine, which has the appearance of extended-spectrum beta-lactamases type Escherichia coli. The patient should be appropriately treated on antibiotics as he is being treated, meropenem appears appropriate. Due to his current systemic illness, consideration of infectious disease evaluation for outpatient antibiotic therapy should be made. 3. Right-sided pyelonephritis, questioned with this patient where does his pyelonephritis type findings arrive from. There is possibly that he has actual vesicoureteral reflux as a cause. A cystogram study when the patient is no longer ill or cystoscopic evaluation may be beneficial. 4. Massive hypertrophy. I reviewed the patient's CT scan of the abdomen and pelvis demonstrating his right-sided pyelonephritis findings. In addition, I evaluated the patient's large prostate gland. His prostate dimensions were 68 mm AP, 70 mm width and 66 mm in length. This would calculate to a 164 cubic cm prostate volume. This patient was to undergo transurethral resection. He probably would need a staged procedure. 5. Diabetes mellitus type 2, currently insulin-dependent. The patient is in the process of recovery from the diabetes mellitus and would need aggressive outpatient therapy to maintain his blood glucose in appropriate range. 6. Polysubstance abuse. I recommend immediate smoking cessation, avoidance of cocaine and discontinuation of any alcohol consumptions as this may contribute to urologic disease including urinary frequency and bladder cancer in the case of smoking. 7. Long-standing complaint of erectile dysfunction. The patient's primary complaint when I entered the room today was that he had erectile dysfunction for 27 years and was mostly interested in talking about that. At this point, he seems to be nearly back to his normal healthy state. His erectile dysfunction is most likely secondary to his diabetes mellitus, will be unlikely recovery on its own. The patient is not a good surgical candidate for an implant. Over 70 minutes of initial evaluation and assessment time was spent in evaluation and assessment of this patient, over of which was in face to face evaluation or in coordination of care, or communication with the patient's family regarding care, exclusive of any procedures performed, [id number]. HOAD
[2017-07-06 05:18] LABS: #Lymphocytes 1.3 thou/uL (1.20-3.40); #Monocytes 0.6 thou/uL (0.11-0.59); #Neutrophils 4.3 thou/uL (1.40-6.50); %Basophils 0.4 % (0.0-1.0); %Eosinophils 0.5 % (0.0-10.0); %Lymphocytes 20.3 % (21.0-51.0); %Monocytes 10.2 % (0.0-10.0); %Neutrophils 68.6 % (42.0-75.0); Hemoglobin 10.2 g/dL (14.0-18.0); Mean Corpuscular HGB CONC 31.8 g/dL (32.0-36.0); Mean Corpuscular Hemoglobin 28.5 pg (27.0-31.0); Mean Corpuscular Volume 89.4 fl (80.0-94.0); Mean Platelet Volume 7.6 fL (7.4-10.4); Platelet Count 213 thou/uL (130-400); RBC Distribution Width 13.1 % (11.5-14.5); Red Blood Cell (RBC) Count 3.58 mill/uL (4.70-6.10); White Blood Cell (WBC) Count 6.2 thou/uL (4.8-10.8)
[2017-07-06 05:29] LABS: Anion Gap 11 mmol/L (10-20); BUN (Urea Nitrogen) 6 mg/dL (8.4-25.7); Calc. Creatinine Clearance 135 mL/min (70-130); Carbon Dioxide 23 mmol/L (23-31); Chloride 106 mmol/L (98-107); Estimated GFR-MDRD Greater than 90; Glucose 145 mg/dL (80-115); Potassium 3.8 mmol/L (3.5-5.1); Sodium 136 mmol/L (136-145)
[2017-07-06] MEDS: Meropenem 1 GM in Sterile Water 20 ML SLOW IVP SCH ×2 (06:09→14:12)
[2017-07-06] MEDS: Sodium Chloride 0.9% 1,000 ML IV SCH (06:12)
[2017-07-06] MEDS: Enoxaparin Sodium 40 MG/0.4 ML SYRINGE SC SCH (08:00)
[2017-07-06] MEDS: Tamsulosin HCl 0.4 MG CAP PO SCH (08:03)
[2017-07-06] MEDS: Famotidine 20 MG TAB PO SCH (08:04)
[2017-07-06] MEDS: Insulin Detemir 100 UNITS/ML 15 UNITS in Pre-Filled Syringe 1 EACH SC SCH (08:07)
--- NOTE | 2017-07-06 12:39 | SPC ---
PICC LINE PLACEMENT ULTRASOUND AND FLUOROSCOPIC GUIDED: History Need for long-term IV access. COMPARISON: None. FINDINGS: The patient was brought to the special suite. All questions were answered. Using ultrasound guidanc e, the left brachial vein is accessed with a micropuncture set after local anesthesia with Lidocaine. The basilic and the cephalic veins were not visualized. Over a wire and through a peelaway sheath, a 51 cm PICC was placed. The patient tolerated the proced ure well. IMPRESSION: Technically successful ultrasound and fluoroscopic-guided PICC line placement. POS: DANNI
[2017-07-06 14:01] VITALS: BP 175/98; TEMP 97.9
--- NOTE | 2017-07-06 14:55 | PDOC.PN ---
- Subjective Encounter Start Date: 07/06/17 Encounter Start Time: 10:35 Subjective: feels better - Objective Resuscitation Status: Resuscitation Status FULL:Full Resuscitation MAR Reviewed: Yes Vital Signs & Weight: Vital Signs (12 hours) Temp Pulse Resp BP Pulse Ox 07/06/17 14:00 97.9 F 78 16 175/98 H 99 07/06/17 08:00 98.1 F 64 16 98 07/06/17 07:12 98.1 F 64 16 147/77 H 98 07/06/17 04:00 98.7 F Weight Weight 178 lb 6 oz I&O: 07/05/17 07/06/17 07/07/17 06:59 06:59 06:59 Intake Total 2820 900 Output Total 2 Balance 2818 900 Result Diagrams: 07/06/17 04:30 07/06/17 04:30 Additional Labs: Accuchecks 07/06/17 07/06/17 07/05/17 12:28 04:16 20:22 POC Glucose 305 H 138 H 109 07/05/17 07/05/17 17:25 11:52 POC Glucose 92 254 H Phys Exam - Physical Examination HEENT: PERRLA, moist MMs Neck: no JVD, supple Respiratory: no wheezing, no rales Cardiovascular: RRR, no significant murmur Gastrointestinal: soft, non-tender, positive bowel sounds Musculoskeletal: no edema, pulses present Neurological: non-focal, moves all 4 limbs Psychiatric: A&O x 3 Dx/Plan (1) Bacteremia due to Escherichia coli Code(s): R78.81 - BACTEREMIA Status: Acute (2) Pyelonephritis due to Escherichia coli Code(s): N12 - TUBULO-INTERSTITIAL NEPHRITIS, NOT SPCF ACUTE OR CHRONIC; B96.20 - UNSP ESCHERICHIA COLI THE CAUSE OF DISEASES CLASSD ELSWHR Status: Acute (3) Sepsis Code(s): A41.9 - SEPSIS, UNSPECIFIED ORGANISM Status: Acute Qualifiers: Sepsis type: Escherichia coli Qualified Code(s): A41.51 - Sepsis due to Escherichia coli [E. coli] (4) UTI (urinary tract infection) Status: Acute Qualifiers: Urinary tract infection type: acute pyelonephritis Qualified Code(s): N10 - Acute pyelonephritis (5) BPH (benign prostatic hyperplasia) Code(s): N40.0 - BENIGN PROSTATIC HYPERPLASIA WITHOUT LOWER URINRY TRACT SYMP Status: Chronic Qualifiers: Lower urinary tract symptom presence: symptoms present Lower urinary tract symptom detail: incomplete bladder emptying Qualified Code(s): N40.1 - Benign prostatic hyperplasia with lower urinary tract symptoms; R39.14 - Feeling of incomplete bladder emptying; R39.14 - Feeling of incomplete bladder emptying (6) DM type 2 (diabetes mellitus, type 2) Status: Chronic Qualifiers: Diabetes mellitus complication status: with unspecified complications Diabetes mellitus terminal carman insulin use: without senior living use Qualified Code( s): E11.8 - Type 2 diabetes mellitus with unspecified complications Comment: labile (7) HTN (hypertension) Code(s): I10 - ESSENTIAL (PRIMARY) HYPERTENSION Status: Chronic Qualifiers: Hypertension type: essential hypertension Qualified Code(s): I10 - Essential (primary) hypertension - Plan pic line -: invanz till aug 01 -: josep pt to [facility] * .
--- NOTE | 2017-07-07 20:11 | DIS ---
DATE OF ADMISSION: 07/03/2017 DATE OF DISCHARGE: 07/06/2017 DISCHARGE DISPOSITION: To [facility]. PRIMARY DISCHARGE DIAGNOSES: Escherichia coli bacteremia due to urinary tract infection and right-sided pyelonephritis, sepsis. SECONDARY DISCHARGE DIAGNOSES: Benign prostatic hypertrophy, diabetes mellitus type 2, hypertension. PROCEDURES DONE DURING HOSPITALIZATION: The patient has had CT of the abdomen and pelvis done which showed findings of possible right-sided pyelonephritis. He also had enlarged prostate gland measuring 4.2 x 6.4 cm. There was also a mass effect upon the floor of the urinary bladder with mild mucosal thickening of the floor of the bladder which is nonspecific. He had a PICC line placed on 07/06/2017. Blood cultures grew E. coli sensitive to amikacin and meropenem. Urine culture grew similar profile of E. coli with it being sensitive to amikacin, meropenem, and Macrobid. He had a white count of 15 on the day of admission with discharge number of 6. Urine drug screen was negative. DISCHARGE MEDICATIONS: Invanz 1 gram IV daily until 08/01/2016, finasteride 5 mg p.o. daily, Flomax 0.4 mg p.o. twice daily, Levemir 15 units subcu q.a.m., Pepcid 20 mg twice daily. ALLERGIES: MILK. INPATIENT CONSULTS: Dr. Jiang for Infectious Disease, Dr. Ryan Castrejon for Urology. BRIEF COURSE DURING HOSPITALIZATION: The patient initially got admitted on the with complaints of abdominal pain and serum sugars of nearly 500. Further workup in the ER revealed UTI and a CT abdomen done was suspicious for right- sided pyelonephritis. He has had a white count of 16 as well. The patient's urine and blood cultures both grew E. coli with resistant profile and sensitive to carbapenems. He was on meropenem during his stay here. He has had consultation with Dr. Jiang for Infectious Disease. Dr. Jiang has recommended Invanz till 08/01/2016. Weekly CBC, CRP, CMP, and sed rate needs to be done and faxed to Dr. Jiang' office. He was also evaluated by Dr. Ryan Castrejon for high post-void residual with history of benign prostatic hypertrophy. The patient needs to follow up with Dr. Ryan Castrejon or Dr. Hernandes for TURP staged procedure due to enormous enlargement of prostate. The patient is known to be noncompliant and has not followed up with them on previous occasions. The patient is essentially homeless as he was in a fpc before arrival here and has been removed from the fpc now. He will be discharged to [facility] for IV antibiotics and a PICC line has been placed now. Please see a [id number] documentation on [facility] for the day of discharge. A total of 35 minutes was spent on discharge. ROXANNA
--- NOTE | 2017-07-21 17:34 | EKG ---
Test Reason : Blood Pressure : / mmHG Vent. Rate : 096 BPM Atrial Rate : 096 BPM P-R Int : 124 ms QRS Dur : 084 ms QT Int : 402 ms P-R-T Axes : 047 -09 021 degrees QTc Int : 507 ms Normal sinus rhythm Possible Left atrial enlargement Left ventricular hypertrophy Prolonged QT Abnormal ECG Confirmed by SAAD SWARTZ ([id number]), loan expeditor ELIA LIU ([id number]) on 07/21/2017 5:33:49 PM Referred By: Confirmed By:SAAD SWARTZ
== END 2017-07-06 15:27 | DRG 871 ==
LOC: ERS 11:38 → T4-A 18:30
PROVIDERS: ADMIT Emergency Medicine; ATTEND Emergency Medicine
PROC: 02HV33Z Insertion of Infusion Device into Superior Vena Cava, Percutaneous Approach (ICD-10-PCS; principal; 2017-07-06)
PROC: B548ZZA Ultrasonography of Superior Vena Cava, Guidance (ICD-10-PCS; 2017-07-06)
DX: A41.51 Sepsis due to Escherichia coli [E. coli] (principal); G93.41 Metabolic encephalopathy; E11.65 Type 2 diabetes mellitus with hyperglycemia; I42.9 Cardiomyopathy, unspecified; N13.8 Other obstructive and reflux uropathy; N10 Acute pyelonephritis; N39.45 Continuous leakage; N40.1 Benign prostatic hyperplasia with lower urinary tract symptoms; R33.8 Other retention of urine; Z16.30 Resistance to unspecified antimicrobial drugs; Z79.2 Long term (current) use of antibiotics; I10 Essential (primary) hypertension; E11.9 Type 2 diabetes mellitus without complications; Z91.19 Patient's noncompliance with other medical treatment and regimen; Z59.0 Homelessness; Z79.4 Long term (current) use of insulin; F17.210 Nicotine dependence, cigarettes, uncomplicated; F10.20 Alcohol dependence, uncomplicated; E78.5 Hyperlipidemia, unspecified; N52.9 Male erectile dysfunction, unspecified; F14.10 Cocaine abuse, uncomplicated
CPT/HCPCS: 36415; 36416; 36569; 74177; 80048; 80053; 80306; 81003; 81015; 82010; 82553; 82947; 83690; 83735; 84100; 84484; 85025; 87040; 87077; 87086; 87149; 87186; 93005; 96361; 96374; 96375; A4216; C1751; J0696; J1644; J1650; J1815; J1956; J2185

== ENCOUNTER 2017-09-01 20:36 | Inpatient (IN) | payer MEDICARE, OTHER ==
[~2017-09-01 20:36] MED LIST: ISOVUE-370 76%-LOCM 1 ML ONE
[2017-09-01] MEDS ORDERED: Acetaminophen 650 MG Suppository ONE (20:57)
[2017-09-01] MEDS ORDERED: Ondansetron HCl/PF 4 MG/2 ML Vial ONE (20:58)
[2017-09-01] MEDS ORDERED: Piperacillin/Tazobactam 4.5 GM in Sodium Chloride 0.9% 100 ML IVPB SCH (21:45)
[2017-09-01] MEDS ORDERED: Vancomycin HCl 1.5 GM in Sodium Chloride 0.9% 250 ML 300 ML IVPB SCH (21:45)
--- NOTE | 2017-09-01 22:04 | RAD ---
PORTABLE AP CHEST X-RAY 09/01/17 HISTORY: Fever for two hours. COMPARISON: 07/08/14. FINDINGS: The cardiac silhouette is magnified by projection. There is a minimal patchy density in the left supr ahilar region stable from prior study in 2014 and may represent an area of scarring. There is patchy density seen at the left lung base in the retrocardiac region and pneumonitis left lung base is a pos sibility. The right lung is clear. Vascular calcifications seen in the thoracic aorta. No other inter raulito change. IMPRESSION: Suggestion of patchy density in the retrocardiac region left lung base not well evaluated on this exa m due to overlying cardiac silhouette. Findings are worrisome for pneumonitis left lung base. Followu p chest x-ray is recommended to ensure resolution. POS: DANNI
[2017-09-01 22:08] LABS: Band 12 % (5-11); Hemoglobin 11.4 g/dL (14.0-18.0); Lymphocytes 8 % (21-51); MDiff Complete? YES; Mean Corpuscular HGB CONC 32.3 g/dL (32.0-36.0); Mean Corpuscular Volume 80.4 fl (80.0-94.0); Mean Platelet Volume 6.8 fL (7.4-10.4); Neutrophil 80 % (42-75); PLT Morphology Comment Appears Adequate; Platelet Count 213 thou/uL (130-400); RBC Distribution Width 13.7 % (11.5-14.5); Red Blood Cell (RBC) Count 4.37 mill/uL (4.70-6.10); White Blood Cell (WBC) Count 4.5 thou/uL (4.8-10.8)
[2017-09-01 22:13] LABS: ALT (SGPT) 20 U/L (8-55); AST (SGOT) 16 U/L (5-34); Albumin 3.6 g/dL (3.4-4.8); Alkaline Phosphatase 86 U/L (40-150); Anion Gap 10 mmol/L (10-20); BUN (Urea Nitrogen) 15 mg/dL (8.4-25.7); Bilirubin, Total 0.5 mg/dL (0.2-1.2); Calc. Creatinine Clearance 0 mL/min (70-130); Calcium 9.4 mg/dL (7.8-10.44); Carbon Dioxide 29 mmol/L (23-31); Chloride 103 mmol/L (98-107); Estimated GFR-MDRD Greater than 90; Glucose 188 mg/dL (80-115); Potassium 3.2 mmol/L (3.5-5.1); Protein, Total 7.6 g/dL (5.8-8.1); Sodium 139 mmol/L (136-145)
--- NOTE | 2017-09-01 22:50 | CT ---
CT ABDOMEN AND PELVIS WITH IV CONTRAST 09/01/17 HISTORY: Generalized abdominal pain. Fever. Decreased responsiveness. COMPARISON: 07/03/17. FINDINGS: There are reticulonodular densities seen at each lung base suggesting infectious process and possibly atypical infectious process. The liver, spleen, pancreas, bilateral adrenal glands, and kidneys demo nstrate a normal CT appearance. The right perinephric stranding and fluid adjacent to the right kidne y noted on the prior study has resolved. Vascular calcifications seen in the abdominal aorta and oumar c arteries. The appendix is visualized and normal in caliber. There is a moderate amount of retained fecal materi al seen throughout the colon. There is mild thickening involving the peterson of the rectum, but this is similar to the prior exam. Minimal presacral inflammatory changes are seen which is also a stable fi nding from the prior exam. The prostate gland remains enlarged with mass effect on the posterior inferior aspect of the urinary bladder. All of the urinary bladder remain mildly prominent, but this is similar to prior study. IMPRESSION: 1. Reticulonodular densities are each lung base which may be related to atypical infectious proc ess. 2. Stable enlargement and lobulated appearance and heterogeneity of the prostate gland. Peterson of the urinary bladder are mildly prominent, but this is a stable finding. 3. Mild thickening of the peterson of the rectum with a moderate amount of retained fecal material seen in the rectum. There is mild inflammatory stranding in a presacral location which were present o n the prior exam as well. Stercoral colitis cannot be entirely excluded, although again, this is a st able finding. 4. No CT evidence of appendicitis. 5. Resolution of the right perinephric inflammatory changes which may be related to resolution o f pyelonephritis. POS: DANNI
[2017-09-01] MEDS ORDERED: Sodium Chloride 0.9% 1,000 ML IV SCH (23:45)
[2017-09-01] MEDS ORDERED: Bisacodyl 5 MG TAB PO PRN (23:54)
[2017-09-01] MEDS ORDERED: Senokot 8.6 MG TAB PO PRN (23:54)
[2017-09-01] MEDS ORDERED: Dextrose 5% in Water 1,000 ML IV PRN (23:59)
[2017-09-01] MEDS ORDERED: Dextrose 50% Abboject 50 ML SYRINGE SLOW IVP PRN (23:59)
[2017-09-02] MEDS ORDERED: Sodium Chloride 0.9% 1,000 ML IV SCH (00:15)
[2017-09-02 00:49] LABS: Bilirubin Negative (Negative); Blood, Urine Small (Negative); Clarity CLEAR (Clear); Glucose, Urine (Dipstick) Negative (Negative); Leukocyte Moderate (Negative); Nitrite Positive (Negative); Protein, Urine (Dipstick) Negative (Neg-Trace); Specific Gravity, Urine 1.042 (1.002-1.036); Urobilinogen 0.2 mg/dL (0.2-1.0); pH, Urine 5.5 (5.0-9.0)
[2017-09-02 00:52] LABS: Bacteria/HPF 4+ HPF (None Seen); Pathc Cast-AUWi Flag 1.88 (0-2.49)
[2017-09-02 00:54] LABS: Hyaline Casts/LPF 0-3 HYALINE CAST LPF (0-3 Hyaline); Oval Fat Bodies/HPF None Seen HPF (None Seen); Renal Epithelial 0-3 HPF (0-3); Sperm/HPF None Seen HPF (None Seen); Transitional Epithelial NONE SEEN HPF (0-3); Trichomonas/HPF None Seen HPF (None Seen); Yeast-All Forms None Seen HPF (None Seen)
[2017-09-02] MEDS ORDERED: Acetaminophen 325 MG/10.15 ML UDCUP ONE (01:24)
[2017-09-02 03:20] VITALS: BMI 23.5
[2017-09-02] MEDS ORDERED: Potassium Chloride 20 MEQ TAB PO SCH (04:00)
[2017-09-02 05:09] LABS: #Lymphocytes 0.7 thou/uL (1.20-3.40); #Monocytes 0.8 thou/uL (0.11-0.59); #Neutrophils 8.8 thou/uL (1.40-6.50); %Basophils 0.1 % (0.0-1.0); %Eosinophils 0.1 % (0.0-10.0); %Lymphocytes 6.5 % (21.0-51.0); %Monocytes 7.5 % (0.0-10.0); %Neutrophils 85.8 % (42.0-75.0); Hemoglobin 9.9 g/dL (14.0-18.0); Mean Corpuscular Hemoglobin 25.9 pg (27.0-31.0); Mean Corpuscular Volume 81.1 fl (80.0-94.0); Mean Platelet Volume 6.9 fL (7.4-10.4); Platelet Count 180 thou/uL (130-400); RBC Distribution Width 13.7 % (11.5-14.5); Red Blood Cell (RBC) Count 3.82 mill/uL (4.70-6.10); White Blood Cell (WBC) Count 10.3 thou/uL (4.8-10.8)
[2017-09-02 05:27] LABS: Anion Gap 10 mmol/L (10-20); BUN (Urea Nitrogen) 14 mg/dL (8.4-25.7); Calc. Creatinine Clearance 117 mL/min (70-130); Calcium 8.4 mg/dL (7.8-10.44); Carbon Dioxide 27 mmol/L (23-31); Chloride 106 mmol/L (98-107); Estimated GFR-MDRD Greater than 90; Glucose 223 mg/dL (80-115); Potassium 3.7 mmol/L (3.5-5.1); Sodium 139 mmol/L (136-145)
--- NOTE | 2017-09-02 05:35 | HP ---
CHIEF COMPLAINT: Fever and tachycardia. PRIMARY CARE PHYSICIAN: Dr. Ismael More. HISTORY OF PRESENT ILLNESS: The patient is a 62-year-old male, who is a detention resident, who p resents to the hospital with fever and tachycardia. The patient unable to provide much of her histor y, most of the history is through documentation. The patient has been known to have a urinary tract infection in the past. The patient has been transported from EMS with complaints of fever. The cain ent has a history of E. coli bacteremia in the blood recently in 06/2017 and also urine culture which had E. coli. PAST MEDICAL HISTORY: The patient has a history of hypertension; diabetes, type 2, insulin-dependent ; dyslipidemia; cardiomyopathy; BPH. PAST SURGICAL HISTORY: Bilateral knee surgery, right ankle surgery, tonsillectomy, colostomy with re versal and a right finger surgery. SOCIAL HISTORY: The patient smokes a half pack a day and drinks less than 5 drinks per day. He used to use cocaine. FAMILY HISTORY: No significant history of coronary artery disease or cancer. MEDICATIONS: The patient takes insulin 15 units q.a.m., Flomax 0.4 mg p.o. b.i.d., finasteride 5 mg p.o. daily, Pepcid 20 mg b.i.d. REVIEW OF SYSTEMS: Unable to obtain. The patient states he wants to sleep and wants to be left staci e. PHYSICAL EXAMINATION: VITAL SIGNS: Temperature 98.1, heart rate 64, respiratory rate 16, 98% on room air, blood pressure 1 47/77. GENERAL: The patient is awake, alert, oriented x1. The patient appears to be severely dehydrated. Has very dry oral mucosa. HEENT: Pupils are equal and reactive to light. Oropharyngeal very dry. CARDIOVASCULAR: S1, S2 present. No murmurs, rubs or gallops. LUNGS: Clear to auscultation. No rhonchi or wheezes noted. ABDOMEN: Soft, nontender. Bowel sounds are present x2. No pain upon palpation. EXTREMITIES: Good pedal pulses. No edema noted. NEUROLOGIC: The patient is moving all 4 extremities and follows basic commands; however, is only gregg ented x1. LABORATORY DATA AND IMAGING: Labs are as the following: A WBC of 4.5, hemoglobin of 11.4, hematocri t of 35.2, platelets of 213. He does have bands of 12. Chemistry: Sodium of 139, potassium of 3.2, chloride of 103, bicarbonate of 29, sugar of 188. The patient also had a urine, which indicated pos itive for nitrites, moderate leukocytes, wbcs 11-20 with 7-10 squamous epithelial cells. The patient also had blood cultures done. The patient also had an abdomen CT, which indicated a reticulonodular density at each lung bases, stable enlargement and lobulated appearance of heterogeneity of the pros worrell gland, peterson of the urinary bladder mildly prominent, mild thickness of the wall of the rectum w ith a moderate amount of retained fecal material, and resolution of the right perinephric inflammator y changes which may be related to resolution of pyelonephritis. ASSESSMENT AND PLAN: The patient is a 62-year-old male, who presents to the hospital with fever and tachycardia. 1. Sepsis. We will start the patient on some meropenem. Given his last culture, his E. coli was re sistant to Levaquin and Zosyn. We will start the patient on meropenem and vancomycin for now. Blood cultures and urine cultures are pending. The patient given a liter IV fluids bolus with normal sali ne at 100 mL per hour. The patient currently has no Ochoa catheter. However, he does have a history of BPH. We will continue patient's home medications. 2. Urinary tract infection, most likely secondary to possible benign prostatic hypertrophy. We will continue antibiotics and continue home medications. 3. Hypokalemia. We will replace potassium. 4. Diabetes, type 2. We will start the patient on his home dose of insulin.
[2017-09-02] MEDS: Sodium Chloride 0.9% 1,000 ML IV SCH ×2 (05:40→14:49)
[2017-09-02] MEDS: HumaLOG 300 UNITS/3 ML VIAL SC PRN (05:51)
[2017-09-02] MEDS ORDERED: Piperacillin/Tazobactam 4.5 GM in Sodium Chloride 0.9% 100 ML IVPB SCH (06:00)
[2017-09-02] MEDS ORDERED: Meropenem 1 GM in Sodium Chloride 0.9% 100 ML IVPB SCH (06:00)
[2017-09-02] MEDS: Meropenem 1 GM in Sodium Chloride 0.9% 100 ML IVPB SCH ×2 (06:09→16:25)
[2017-09-02] MEDS: Finasteride 5 MG TAB PO SCH (10:37)
[2017-09-02] MEDS: Tamsulosin HCl 0.4 MG CAP PO SCH ×2 (10:37→21:33)
[2017-09-02] MEDS: Heparin 5,000 UNITS/ML VIAL SC SCH ×3 (10:37→21:35)
[2017-09-02] MEDS: Insulin Detemir 100 UNITS/ML 15 UNITS in Pre-Filled Syringe 1 EACH SC SCH (10:46)
--- NOTE | 2017-09-02 12:12 | PDOC.PN ---
- Subjective Encounter Start Date: 09/02/17 Encounter Start Time: 12:11 Mr. Louis was seen today in follow-up of UTI with sepsis. His main complaint is that he is hungry, and his ankles hurt. He also feels cold, and is having chills. - Objective MAR Reviewed: Yes Vital Signs & Weight: Vital Signs (12 hours) Temp Pulse Resp BP Pulse Ox 09/02/17 11:15 99.5 F 78 20 152/84 H 98 09/02/17 07:25 97.9 F 81 20 115/65 99 09/02/17 06:22 99.5 F 84 09/02/17 03:48 101.6 F H 106 H 20 92 L 09/02/17 02:35 101.6 F H 106 H 20 109/66 92 L Weight Weight 193 lb 4.8 oz Result Diagrams: 09/02/17 05:01 09/02/17 05:01 Additional Labs: Accuchecks 09/02/17 09/02/17 10:47 05:10 POC Glucose 207 H 235 H Phys Exam - Physical Examination HEENT: PERRLA Respiratory: no wheezing, no rales, no rhonchi, clear to auscultation bilateral Cardiovascular: RRR, no significant murmur Gastrointestinal: soft, non-tender, positive bowel sounds Musculoskeletal: no edema Dx/Plan (1) Sepsis Code(s): A41.9 - SEPSIS, UNSPECIFIED ORGANISM Status: Acute Qualifiers: Sepsis type: Escherichia coli Qualified Code(s): A41.51 - Sepsis due to Escherichia coli [E. coli] (2) UTI (urinary tract infection) Status: Acute Qualifiers: Urinary tract infection type: acute pyelonephritis Qualified Code(s): N10 - Acute pyelonephritis (3) BPH (benign prostatic hyperplasia) Code(s): N40.0 - BENIGN PROSTATIC HYPERPLASIA WITHOUT LOWER URINRY TRACT SYMP Status: Chronic Qualifiers: Lower urinary tract symptom presence: symptoms present Lower urinary tract symptom detail: incomplete bladder emptying Qualified Code(s): N40.1 - Benign prostatic hyperplasia with lower urinary tract symptoms; R39.14 - Feeling of incomplete bladder emptying; R39.14 - Feeling of incomplete bladder emptying (4) DM type 2 (diabetes mellitus, type 2) Status: Chronic Qualifiers: Diabetes mellitus watermaster insulin use: without retirement use Diabetes mellitus complication status: with unspecified complications Qualified Code(s) : E11.8 - Type 2 diabetes mellitus with unspecified complications Comment: labile (5) HTN (hypertension) Code(s): I10 - ESSENTIAL (PRIMARY) HYPERTENSION Status: Chronic Qualifiers: Hypertension type: essential hypertension Qualified Code(s): I10 - Essential (primary) hypertension - Plan * UTI- with sepsis- continue Meropenem, based on the sensitivities of his prior admission. The records from his prior admission were reviewed. He has severe BPH with Urinary retention which places him at risk for recurrent UTI. He has refused to wear a Ochoa Catheter, and refuses to perform I&O catheterization. His care had been further complicated by him being Homeless at one point. He tells me he now is residing at the [place] [facility]. He has very poor insight into his condition, and does not seem capable of adequately maintaining his care. It appears from our discussion that he has not pursed Outpatient Urology evaluation since his last hospitalization. When I try to inquire why or ask further details, his response is almost always " They don't do anything for me" . I will consult Urology in the chance that he could possibly undergo TURP during this hospitalization, as if he continues to have MDR UTI, he may not survive a future admission. Of course this will be up to the discretion of the Urologist, as this appears to have been an ongoing medical concern , dating back years to when the patient was in " the " when at that time they also " did nothing for me". * BPH- will continue Flomax and Fenasteride * HTN- blood pressure is elevated- will monitor and treat with PRN medications, and monitor the trend * DM- hold Metformin for now, and continue SSI
[2017-09-02] MEDS: Vancomycin HCl 1.75 GM in Sodium Chloride 0.9% 500 ML IVPB SCH ×2 (12:21→22:18)
[2017-09-02] MEDS ORDERED: hydrALAZINE 20 MG/ML VIAL SLOW IVP PRN (12:23)
[2017-09-02] MEDS ORDERED: Sodium Chloride 0.9% 500 ML IV SCH (12:30)
[2017-09-02] MEDS ORDERED: Labetalol HCl 100 MG/20 ML VIAL SLOW IVP PRN (14:35)
[2017-09-02] MEDS: Acetaminophen 325 MG TAB PO PRN (14:45)
[2017-09-02] MEDS: Meropenem 1 GM in Sterile Water 20 ML SLOW IVP SCH ×2 (16:24→21:35)
[2017-09-02] MEDS ORDERED: Gabapentin 300 MG CAP PO SCH (21:00)
[2017-09-02] MEDS: Melatonin 3 MG TAB PO SCH (21:33)
[2017-09-02] MEDS: Famotidine 20 MG TAB PO SCH (21:33)
[2017-09-03] MEDS: Sodium Chloride 0.9% 1,000 ML IV SCH ×3 (06:26→18:10)
[2017-09-03] MEDS: Meropenem 1 GM in Sterile Water 20 ML SLOW IVP SCH ×3 (06:26→21:51)
--- NOTE | 2017-09-03 07:26 | PDOC.PN ---
- Subjective Encounter Start Date: 09/03/17 Encounter Start Time: 07:25 Mr. Louis was seen today in follow-up. He feels better, except still feels a little cold, and has some ankle pain. He says it is due to Neuropathy, and that Gabapentin does not help. Lyrica works better for him. - Objective MAR Reviewed: Yes Vital Signs & Weight: Vital Signs (12 hours) Temp Pulse Resp BP Pulse Ox 09/02/17 20:50 98.6 F 80 22 H 100/62 93 L 09/02/17 20:00 98.6 F 80 22 H 93 L Weight Weight 193 lb 4.8 oz I&O: 09/02/17 09/03/17 09/04/17 06:59 06:59 06:59 Intake Total 1400 Balance 1400 Result Diagrams: 09/02/17 05:01 09/02/17 05:01 Additional Labs: Accuchecks 09/02/17 09/02/17 22:44 10:47 POC Glucose 186 H 207 H Phys Exam - Physical Examination HEENT: PERRLA Respiratory: no wheezing, no rales, no rhonchi, clear to auscultation bilateral Cardiovascular: RRR, no significant murmur, no rub Gastrointestinal: soft, non-tender, no distention Musculoskeletal: no edema Dx/Plan (1) Sepsis Code(s): A41.9 - SEPSIS, UNSPECIFIED ORGANISM Status: Acute Qualifiers: Sepsis type: Escherichia coli Qualified Code(s): A41.51 - Sepsis due to Escherichia coli [E. coli] (2) UTI (urinary tract infection) Status: Acute Qualifiers: Urinary tract infection type: acute pyelonephritis Qualified Code(s): N10 - Acute pyelonephritis (3) BPH (benign prostatic hyperplasia) Code(s): N40.0 - BENIGN PROSTATIC HYPERPLASIA WITHOUT LOWER URINRY TRACT SYMP Status: Chronic Qualifiers: Lower urinary tract symptom presence: symptoms present Lower urinary tract symptom detail: incomplete bladder emptying Qualified Code(s): N40.1 - Benign prostatic hyperplasia with lower urinary tract symptoms; R39.14 - Feeling of incomplete bladder emptying; R39.14 - Feeling of incomplete bladder emptying (4) DM type 2 (diabetes mellitus, type 2) Status: Chronic Qualifiers: Diabetes mellitus intermediate project manager insulin use: without intermediate project manager use Diabetes mellitus complication status: with unspecified complications Qualified Code(s) : E11.8 - Type 2 diabetes mellitus with unspecified complications Comment: labile (5) HTN (hypertension) Code(s): I10 - ESSENTIAL (PRIMARY) HYPERTENSION Status: Chronic Qualifiers: Hypertension type: essential hypertension Qualified Code(s): I10 - Essential (primary) hypertension - Plan * E Coli sepsis from UTI- Patient had fever has high as 103 yesterday- Continue Meropenem- based on previous cultures- await the current culture results * BPH with Urinary retention- this has been a chronic problem ( previous Urology work-up was noted) - will consult Urology to see if it is feasible to have TURP or other option to relieve obstruction during this hospitalization * HTN- blood pressure is stable * DM- blood glucose is stable.
[2017-09-03] MEDS: Famotidine 20 MG TAB PO SCH ×2 (08:24→21:50)
[2017-09-03] MEDS: Acetaminophen 325 MG TAB PO PRN (08:24)
[2017-09-03] MEDS: Pregabalin 50 MG CAP PO SCH ×2 (08:25→21:49)
[2017-09-03] MEDS: Finasteride 5 MG TAB PO SCH (08:25)
[2017-09-03] MEDS: Tamsulosin HCl 0.4 MG CAP PO SCH ×2 (08:25→21:50)
[2017-09-03] MEDS ORDERED: FLU VACC QS2017-18 36 mo. & older 0.5 ML SYRINGE IM ONE (09:00)
[2017-09-03 09:08] LABS: #Lymphocytes 1.5 thou/uL (1.20-3.40); #Neutrophils 7.6 thou/uL (1.40-6.50); %Eosinophils 0.1 % (0.0-10.0); %Lymphocytes 14.7 % (21.0-51.0); %Monocytes 9.8 % (0.0-10.0); %Neutrophils 75.4 % (42.0-75.0); Hemoglobin 9.9 g/dL (14.0-18.0); Mean Corpuscular HGB CONC 30.6 g/dL (32.0-36.0); Mean Corpuscular Hemoglobin 24.9 pg (27.0-31.0); Mean Corpuscular Volume 81.4 fl (80.0-94.0); Mean Platelet Volume 7.5 fL (7.4-10.4); Platelet Count 140 thou/uL (130-400); RBC Distribution Width 13.6 % (11.5-14.5); Red Blood Cell (RBC) Count 3.97 mill/uL (4.70-6.10); White Blood Cell (WBC) Count 10.1 thou/uL (4.8-10.8)
[2017-09-03 09:17] LABS: Anion Gap 11 mmol/L (10-20); BUN (Urea Nitrogen) 14 mg/dL (8.4-25.7); Calc. Creatinine Clearance 120 mL/min (70-130); Calcium 7.9 mg/dL (7.8-10.44); Carbon Dioxide 24 mmol/L (23-31); Chloride 104 mmol/L (98-107); Estimated GFR-MDRD Greater than 90; Glucose 220 mg/dL (80-115); Potassium 3.6 mmol/L (3.5-5.1); Sodium 135 mmol/L (136-145)
[2017-09-03] MEDS: Heparin 5,000 UNITS/ML VIAL SC SCH ×3 (09:23→21:50)
[2017-09-03] MEDS: Insulin Detemir 100 UNITS/ML 15 UNITS in Pre-Filled Syringe 1 EACH SC SCH (09:24)
[2017-09-03] MEDS: Vancomycin HCl 1.75 GM in Sodium Chloride 0.9% 500 ML IVPB SCH ×3 (14:18→16:35)
[2017-09-03] MEDS: HumaLOG 300 UNITS/3 ML VIAL SC PRN ×2 (17:30→22:07)
[2017-09-03] MEDS: Melatonin 3 MG TAB PO SCH (21:49)
[2017-09-04] MEDS: Sodium Chloride 0.9% 1,000 ML IV SCH ×2 (00:31→19:44)
--- NOTE | 2017-09-04 02:20 | CON ---
DATE OF CONSULTATION REQUEST AND REPORT: 09/03/2017 DATE OF HOSPITAL ADMISSION: 09/01/2017 REASON FOR CONSULTATION: 1. Concerns for pyelonephritis versus simple urinary tract infection. 2. Concerns regarding enlarged prostate. 3. Erectile dysfunction. HISTORY OF PRESENT ILLNESS: Mr. Kuldip Louis is a very pleasant 62-year-old -Hungarian mal e whom I am acquainted with due to care on previous coverage for Dr. Jessica Hernandes who has been s eeing him in the past. Mr. Louis presents on this hospital admission with apparent urinary tract inf ection with associated fever. I am consulted on this admission due to the patient's enlarged prostat e, complaints of erectile dysfunction and concerns for possible pyelonephritis. Mr. Louis has apparent E. coli UTI and has also had E. coli cultured from his blood x2. Apparently, suffering from sepsis from his current urinary tract infection. Mr. Louis reports that he feels quite bad due to this illness. He does have a number of systemic com plaints which have been present for number of years. He has known enlarged prostate gland, which bas ed on my review of his recent CT scan is about 161 grams in overall size using a prostate ellipse vol ume. The patient did have a CT scan at admission, which shows no evidence or improved stranding arou nd the patient's kidneys relative to previous imaging studies. Mr. Louis has been on maximal medical therapy for his enlarged prostate gland for a number of years. He has never really kept regular followup in the office for his multiple problems. Addressing his e rectile dysfunction complaints and BPH, issues has been ongoing complaint for years, but only address ed while in hospital. PAST MEDICAL HISTORY: 1. Benign prostatic hyperplasia. 2. Hypertension. 3. Diabetes mellitus type 2 with insulin dependence. 4. Past history of polysubstance abuse with cigarette smoking, cocaine use and alcoholism in the pas t. PAST SURGICAL HISTORY: The patient underwent previous cystoscopic evaluations and a prostate needle biopsy in 2014, which was negative for prostate cancer. SOCIAL HISTORY: The patient has longstanding history of cigarette smoking, has used cocaine in the p ast. He is disabled at the present time due to his diabetes. REVIEW OF SYSTEMS: Constitutional: The patient reports subjective fever and fatigue. Pulmonary: N egative. Cardiac: Negative. Gastrointestinal: No complaints of diarrhea or gastrointestinal pain. Musculoskeletal: Negative except for generalized aches and pains. Genitourinary: The patient rep orts that he has aching in the perineum and thinks his prostate is acting up. He does not report sig nificant suprapubic discomfort. He reports no lateralizing flank pain symptoms on this admission. E ndocrinologic: The patient is diabetic type 2, currently on insulin. PHYSICAL EXAMINATION: VITAL SIGNS: Temperature is 99.7 F, pulse 91, respirations 17, O2 saturation on room air is 90%, and blood pressure is 129/74. GENERAL: This is a pleasant, awake, alert, GCS 15, -Hungarian male, in no apparent distress. He does appear slightly more listless than usual. HEAD, EARS, NOSE AND THROAT: Extraocular movements are intact. Sclerae are anicteric. Oropharynx i s clear. NECK: Supple. LUNGS: Clear to auscultation bilaterally. CARDIAC: Regular rate and rhythm without murmur, rub or gallop. ABDOMEN: Soft and nontender. Percussion reveals some increased resonance in the bilateral upper alissa drants. There is no dullness to percussion over the suprapubic area. BACK: No true costovertebral angle tenderness present on my exam. GENITOURINARY: The phallus is without lesion. Testes are present bilaterally in the scrotum. They are smooth, anodular, nontender. Palpation of inguinal canal finds no evidence of hernia. RECTAL: Digital rectal examination is performed, finds prostate gland palpates much smaller size and it is known to be by CT scan imaging. LABORATORY STUDIES: [place] [address] with a relative neutrophilia down to 74% toda y from 85% yesterday. Serum chemistry show blood urea nitrogen of 14 with a creatinine of 0.79, gluc ose is consistently elevated in the 200 range. Microbiology: The patient has one blood culture posi tive for E. coli from his right hand. Another specimen from the right hand also shows E. coli and th e patient's voided urine has presumptive E. coli in it. These are based on the Verigene nucleic acid test. RADIOLOGIC STUDIES: CT scan of the abdomen and pelvis was performed on 09/01/2017, I reviewed this s tudy in its entirety including portions with enlarged prostate gland. The patient has reticular nodu lar densities in each lung base. There is stable enlargement and lobulated appearance of the prostat e gland. My calculations showed dimensions of 3.7 cm x 2.9 cm x 3.6 cm measuring to a calculated pro state ellipse volume of 161 cubic cm. This is a quite enlarged prostate gland. Despite the enlargem ent of the prostate, the patient's bladder wall was relatively thin walled for a prostate gland of th is size. No significant diverticula were observed. The patient on previous imaging studies has demonstrated right perinephric inflammatory changes which appeared to be significantly improved. I did not find significant stranding about either left or ri ght kidney. ASSESSMENT: 1. Infectious Disease concerns, the patient's digital rectal examination not suggestive of prostatiti s. He does appear to have had urinary tract infection as well as urosepsis with Verigene positive sp ecimens from the patient's right hand x2. Antibiotic therapy as appropriate for Escherichia coli is indicated due to apparent complicated presentation in this man, he is due for a full 2-week antibioti c course. I do not suspect prostatitis in this patient's case based on physical exam findings; howev er, he is diabetic and this may blunt some of his physical findings. It would be appropriate if we c onsider prostatitis as the core cause here for the patient to have a longer course of antibiotic up t o at least a month. 2. The patient's multiple complaints with relation to urinary tract, the patient is primarily concer [place] about erectile dysfunction and retrograde ejaculation. His desires of some type of intervention primarily directed towards that. I discussed with the patient that he probably would require a penil e implant in order to achieve erectile function as he reports erectile dysfunction has been present f or 20 years or more and he is diabetic. Medical therapy is unlikely to be successful in this patient . Cost of the drugs, medications, penile implants are all prohibitive for him. This is unfortunate. 3. Anejaculation or retrograde ejaculation. The patient has such a large prostate gland that some o f his ejaculation complaints were probably related to that. In addition, hormonal status could be a contributor. These would be outpatient type investigations. 4. Benign prostatic hypertrophy with massive enlargement of the prostate gland. The patient's prost ate gland is very enlarged. I have personally biopsied the patient and the patient previously report ed that he had a biopsy at Dr. Hernandes's office. This is not available online for review. The p atient certainly from my standpoint would have no contraindications to proceeding with transurethral resection if this was actually going to improve his quality of life. The mere size of his prostate g land is not an indicator for transurethral resection or suprapubic prostatectomy. Rather, the patien t needs to show appropriate obstructive urodynamics with retention. In the patient's case, the patie nt may have other causes for retention which would include diabetes with paralysis of the bladder. A lso discussed with the patient that surgical interventions may well make him worse in all of his comp laining areas, certainly surgery is initially going to cause incontinence as his sphincter muscle has probably been defunctionalized for at least a decade or more. Expecting it to function correctly af ter this longer period of disuse is unrealistic. The patient also has erectile dysfunction and ejacu lation complaints and these would certainly not be improved by surgical interventions. LONG-TERM PLAN: 1. The patient should be treated with a long course of antibiotics as appropriate for his E. coli UT I, which may include prostatitis which is not detectable on clinical level due to the patient's concu rrent diabetes mellitus. I think at least a 2-week course of antibiotics and preferably 1 month woul d be appropriate. 2. Multiple outpatient type complaints regarding erectile dysfunction and retrograde ejaculation wou ld need to be addressed as an outpatient. Over 70 minutes of initial consultation time was spent in evaluation and assessment of this patient t mariana.
[2017-09-04] MEDS: Vancomycin HCl 1.75 GM in Sodium Chloride 0.9% 500 ML IVPB SCH ×3 (03:02→20:41)
[2017-09-04] MEDS: Meropenem 1 GM in Sterile Water 20 ML SLOW IVP SCH (06:20)
--- NOTE | 2017-09-04 08:33 | PDOC.PN ---
- Subjective Encounter Start Date: 09/04/17 Encounter Start Time: 08:27 Subjective: burning in legs, not on his lyrica - Objective MAR Reviewed: Yes Vital Signs & Weight: Vital Signs (12 hours) Temp Pulse Resp BP Pulse Ox 09/04/17 04:35 98.2 F 95 18 147/81 H 88 L 09/04/17 00:47 100.3 F H 87 16 144/81 H 87 L 09/03/17 20:40 99.7 F H 91 17 129/74 90 L Weight Weight 193 lb 4.8 oz I&O: 09/03/17 09/04/17 09/05/17 06:59 06:59 06:59 Intake Total 1400 2180 Balance 1400 2180 Result Diagrams: 09/03/17 08:43 09/03/17 08:43 Additional Labs: Accuchecks 09/04/17 09/03/17 09/03/17 05:57 20:14 16:52 POC Glucose 169 H 193 H 218 H 09/03/17 10:46 POC Glucose 241 H Phys Exam - Physical Examination Neck: no JVD Respiratory: clear to auscultation bilateral Cardiovascular: RRR, no significant murmur Gastrointestinal: soft, non-tender, positive bowel sounds Musculoskeletal: no edema Dx/Plan (1) Bacteremia due to Escherichia coli Code(s): R78.81 - BACTEREMIA Status: Acute (2) Hyperglycemia due to type 2 diabetes mellitus Code(s): E11.65 - TYPE 2 DIABETES MELLITUS WITH HYPERGLYCEMIA Status: Acute (3) Pyelonephritis due to Escherichia coli Code(s): N12 - TUBULO-INTERSTITIAL NEPHRITIS, NOT SPCF ACUTE OR CHRONIC; B96.20 - UNSP ESCHERICHIA COLI THE CAUSE OF DISEASES CLASSD ELSWHR Status: Acute (4) UTI (urinary tract infection) Status: Acute Qualifiers: Urinary tract infection type: acute pyelonephritis Qualified Code(s): N10 - Acute pyelonephritis (5) BPH (benign prostatic hyperplasia) Code(s): N40.0 - BENIGN PROSTATIC HYPERPLASIA WITHOUT LOWER URINRY TRACT SYMP Status: Chronic Qualifiers: Lower urinary tract symptom presence: symptoms present Lower urinary tract symptom detail: incomplete bladder emptying Qualified Code(s): N40.1 - Benign prostatic hyperplasia with lower urinary tract symptoms; R39.14 - Feeling of incomplete bladder emptying; R39.14 - Feeling of incomplete bladder emptying (6) DM type 2 (diabetes mellitus, type 2) Status: Chronic Qualifiers: Diabetes mellitus care home insulin use: without intermediate project manager use Diabetes mellitus complication status: with unspecified complications Qualified Code(s) : E11.8 - Type 2 diabetes mellitus with unspecified complications Comment: labile (7) HTN (hypertension) Code(s): I10 - ESSENTIAL (PRIMARY) HYPERTENSION Status: Chronic Qualifiers: Hypertension type: essential hypertension Qualified Code(s): I10 - Essential (primary) hypertension - Plan reinstitute insulin -: cont accu/ss -: cont merpenem -: check on home meds * .
[2017-09-04] MEDS: Potassium Chloride 10 MEQ TAB PO SCH (12:01)
[2017-09-04] MEDS: Furosemide 20 MG TAB PO SCH (12:01)
[2017-09-04] MEDS: Tamsulosin HCl 0.4 MG CAP PO SCH ×2 (12:01→20:45)
[2017-09-04] MEDS: Famotidine 20 MG TAB PO SCH ×2 (12:02→20:45)
[2017-09-04] MEDS: Pregabalin 50 MG CAP PO SCH ×2 (12:02→20:44)
[2017-09-04] MEDS: Finasteride 5 MG TAB PO SCH (12:02)
[2017-09-04] MEDS: metFORMIN 500 MG TAB PO SCH ×2 (12:04→20:45)
[2017-09-04] MEDS: Insulin Detemir 100 UNITS/ML 15 UNITS in Pre-Filled Syringe 1 EACH SC SCH (12:04)
[2017-09-04] MEDS: Heparin 5,000 UNITS/ML VIAL SC SCH ×3 (12:06→20:45)
[2017-09-04] MEDS: Insulin Detemir 100 UNITS/ML 20 UNITS in Pre-Filled Syringe 1 EACH SC SCH ×2 (12:26→20:43)
[2017-09-04] MEDS: MEROPENEM 1 GM/50 ML 1 GM in Admixture Fee 1 EACH IVPB SCH ×2 (19:55→22:21)
[2017-09-04] MEDS: Melatonin 3 MG TAB PO SCH ×2 (20:44→22:23)
[2017-09-05] MEDS: Sodium Chloride 0.9% 1,000 ML IV SCH ×3 (00:59→20:04)
[2017-09-05] MEDS: MEROPENEM 1 GM/50 ML 1 GM in Admixture Fee 1 EACH IVPB SCH ×3 (05:30→22:36)
[2017-09-05 07:55] LABS: Vancomycin, Trough 17.1 ug/mL
--- NOTE | 2017-09-05 08:54 | PDOC.PN ---
- Subjective Encounter Start Date: 09/05/17 Encounter Start Time: 08:53 Subjective: broke tooth last pm eating, minimal discomfort - Objective MAR Reviewed: Yes Vital Signs & Weight: Vital Signs (12 hours) Temp Pulse Resp BP Pulse Ox 09/05/17 04:00 98.2 F 67 20 129/71 97 Weight Weight 193 lb 4.8 oz I&O: 09/04/17 09/05/17 09/06/17 06:59 06:59 06:59 Intake Total 2180 1849 Output Total 150 Balance 2180 1699 Result Diagrams: 09/03/17 08:43 09/03/17 08:43 Additional Labs: Accuchecks 09/05/17 09/04/17 09/04/17 06:01 21:01 17:39 POC Glucose 87 156 H 147 H 09/04/17 11:00 POC Glucose 187 H Phys Exam - Physical Examination Neck: no JVD Respiratory: clear to auscultation bilateral Cardiovascular: RRR, no significant murmur Gastrointestinal: soft, non-tender, positive bowel sounds Musculoskeletal: edema present Dx/Plan (1) Bacteremia due to Escherichia coli Code(s): R78.81 - BACTEREMIA Status: Acute (2) Hyperglycemia due to type 2 diabetes mellitus Code(s): E11.65 - TYPE 2 DIABETES MELLITUS WITH HYPERGLYCEMIA Status: Acute (3) Pyelonephritis due to Escherichia coli Code(s): N12 - TUBULO-INTERSTITIAL NEPHRITIS, NOT SPCF ACUTE OR CHRONIC; B96.20 - UNSP ESCHERICHIA COLI THE CAUSE OF DISEASES CLASSD ELSWHR Status: Acute (4) UTI (urinary tract infection) Status: Acute Qualifiers: Urinary tract infection type: acute pyelonephritis Qualified Code(s): N10 - Acute pyelonephritis (5) BPH (benign prostatic hyperplasia) Code(s): N40.0 - BENIGN PROSTATIC HYPERPLASIA WITHOUT LOWER URINRY TRACT SYMP Status: Chronic Qualifiers: Lower urinary tract symptom presence: symptoms present Lower urinary tract symptom detail: incomplete bladder emptying Qualified Code(s): N40.1 - Benign prostatic hyperplasia with lower urinary tract symptoms; R39.14 - Feeling of incomplete bladder emptying; R39.14 - Feeling of incomplete bladder emptying (6) DM type 2 (diabetes mellitus, type 2) Status: Chronic Qualifiers: Diabetes mellitus senior care insulin use: without senior care use Diabetes mellitus complication status: with unspecified complications Qualified Code(s) : E11.8 - Type 2 diabetes mellitus with unspecified complications Comment: labile (7) HTN (hypertension) Code(s): I10 - ESSENTIAL (PRIMARY) HYPERTENSION Status: Chronic Qualifiers: Hypertension type: essential hypertension Qualified Code(s): I10 - Essential (primary) hypertension - Plan PICC line today -: cont iv antibx -: cont accu/ss/detemir- adequate control BS -: DC planning for outpt antbx * .
[2017-09-05] MEDS: Vancomycin HCl 1.75 GM in Sodium Chloride 0.9% 500 ML IVPB SCH ×2 (09:28→19:56)
[2017-09-05] MEDS: Potassium Chloride 10 MEQ TAB PO SCH (09:40)
[2017-09-05] MEDS: Furosemide 20 MG TAB PO SCH (09:40)
[2017-09-05] MEDS: Finasteride 5 MG TAB PO SCH (09:40)
[2017-09-05] MEDS: Tamsulosin HCl 0.4 MG CAP PO SCH ×2 (09:40→19:57)
[2017-09-05] MEDS: Famotidine 20 MG TAB PO SCH ×2 (09:40→19:57)
[2017-09-05] MEDS: metFORMIN 500 MG TAB PO SCH ×2 (09:40→19:57)
[2017-09-05] MEDS: Heparin 5,000 UNITS/ML VIAL SC SCH ×3 (09:44→19:59)
[2017-09-05] MEDS: Pregabalin 50 MG CAP PO SCH ×2 (09:44→19:58)
--- NOTE | 2017-09-05 12:28 | SPC ---
LEFT UPPER EXTREMITY ULTRASOUND GUIDED PICC PLACEMENT: Date: 09-05-17 History: Urinary tract infection requiring IV antibiotics. FINDINGS: Informed consent for ultrasound guided left upper extremity PICC obtained prior to the procedure. Lef t antecubital fossa is prepped and draped in normal sterile fashion. Skin overlying the brachial vein on the left is anesthetized with 1% buffered Lidocaine. The left basilic vein and cephalic vein coul d not be visualized. With direct sonographic guidance, vascular access is obtained via the left brachial vein and an 018 w yahaira is advanced to the cavoatrial junction. Intravascular length is calculated at 48 cm and the PICC was cut accordingly. The needle was removed and replaced with a peelaway sheath. The PICC was advance d over the wire. The wire and peelaway sheath were removed. Tip of the catheter overlies the cavoatri al junction. The catheter flushes well and is ready for use. Exposure date: 0.3 minutes fluoroscopic time; 1523 mGy*cm^2. IMPRESSION: Successful ultrasound guided left upper extremity PICC placement. POS: DANNI
[2017-09-05] MEDS: Insulin Detemir 100 UNITS/ML 15 UNITS in Pre-Filled Syringe 1 EACH SC SCH (14:27)
[2017-09-05 19:17] LABS: Bilirubin Negative (Negative); Blood, Urine Negative (Negative); Clarity CLEAR (Clear); Glucose, Urine (Dipstick) Negative (Negative); Leukocyte Small (Negative); Nitrite Negative (Negative); Protein, Urine (Dipstick) Trace mg/dL (Neg-Trace)
[2017-09-05 19:22] LABS: Bacteria/HPF None Seen HPF (None Seen); Hyaline Casts/LPF 0-3 HYALINE CAST LPF (0-3 Hyaline); Pathc Cast-AUWi Flag 0.43 (0-2.49); Squamous Epithelial 0-3 HPF (0-3)
[2017-09-05 19:28] LABS: Renal Epithelial None Seen HPF (0-3); Transitional Epithelial NONE SEEN HPF (0-3)
[2017-09-05] MEDS: Melatonin 3 MG TAB PO SCH (19:57)
[2017-09-06] MEDS: Sodium Chloride 0.9% 1,000 ML IV SCH ×2 (05:30→16:26)
[2017-09-06] MEDS: MEROPENEM 1 GM/50 ML 1 GM in Admixture Fee 1 EACH IVPB SCH ×3 (05:41→15:36)
[2017-09-06] MEDS: Pregabalin 50 MG CAP PO SCH ×2 (09:59→20:17)
[2017-09-06] MEDS: metFORMIN 500 MG TAB PO SCH ×2 (10:00→20:17)
[2017-09-06] MEDS: Tamsulosin HCl 0.4 MG CAP PO SCH ×2 (10:00→20:19)
[2017-09-06] MEDS: Furosemide 20 MG TAB PO SCH (10:00)
[2017-09-06] MEDS: Famotidine 20 MG TAB PO SCH ×2 (10:00→20:19)
[2017-09-06] MEDS: Heparin 5,000 UNITS/ML VIAL SC SCH ×3 (10:01→20:20)
[2017-09-06] MEDS: Potassium Chloride 10 MEQ TAB PO SCH (10:01)
[2017-09-06] MEDS: Insulin Detemir 100 UNITS/ML 15 UNITS in Pre-Filled Syringe 1 EACH SC SCH (10:02)
[2017-09-06] MEDS: Finasteride 5 MG TAB PO SCH (10:22)
[2017-09-06] MEDS: Vancomycin HCl 1.75 GM in Sodium Chloride 0.9% 500 ML IVPB SCH (12:37)
[2017-09-06] MEDS ORDERED: Vancomycin HCl 1.75 GM in Sodium Chloride 0.9% 500 ML IVPB SCH (13:00)
--- NOTE | 2017-09-06 13:56 | PDOC.PN ---
- Subjective Encounter Start Date: 09/06/17 Encounter Start Time: 13:55 Mr. Louis was seen today in follow-up. He does not have any complaints, other than he wants to go outside and get some sun. - Objective MAR Reviewed: Yes Vital Signs & Weight: Vital Signs (12 hours) Temp Pulse Resp BP Pulse Ox 09/06/17 08:00 99.0 F 64 18 156/85 H 93 L 09/06/17 04:45 98.8 F 64 18 112/57 L 94 L Weight Weight 193 lb 4.8 oz I&O: 09/05/17 09/06/17 09/07/17 06:59 06:59 06:59 Intake Total 1849 1971 Output Total 150 825 Balance 1699 1146 Result Diagrams: 09/03/17 08:43 09/03/17 08:43 Additional Labs: Accuchecks 09/06/17 09/06/17 09/05/17 11:21 04:45 19:48 POC Glucose 173 H 86 136 H 09/05/17 16:38 POC Glucose 136 H Phys Exam - Physical Examination HEENT: PERRLA Respiratory: no wheezing, no rales, no rhonchi, clear to auscultation bilateral Cardiovascular: RRR, no significant murmur Gastrointestinal: soft, non-tender, positive bowel sounds Musculoskeletal: no edema Dx/Plan (1) Sepsis Code(s): A41.9 - SEPSIS, UNSPECIFIED ORGANISM Status: Acute Qualifiers: Sepsis type: Escherichia coli Qualified Code(s): A41.51 - Sepsis due to Escherichia coli [E. coli] (2) UTI (urinary tract infection) Status: Acute Qualifiers: Urinary tract infection type: acute pyelonephritis Qualified Code(s): N10 - Acute pyelonephritis (3) BPH (benign prostatic hyperplasia) Code(s): N40.0 - BENIGN PROSTATIC HYPERPLASIA WITHOUT LOWER URINRY TRACT SYMP Status: Chronic Qualifiers: Lower urinary tract symptom presence: symptoms present Lower urinary tract symptom detail: incomplete bladder emptying Qualified Code(s): N40.1 - Benign prostatic hyperplasia with lower urinary tract symptoms; R39.14 - Feeling of incomplete bladder emptying; R39.14 - Feeling of incomplete bladder emptying (4) DM type 2 (diabetes mellitus, type 2) Status: Chronic Qualifiers: Diabetes mellitus wheel adjuster insulin use: without [facility] use Diabetes mellitus complication status: with unspecified complications Qualified Code(s) : E11.8 - Type 2 diabetes mellitus with unspecified complications Comment: labile (5) HTN (hypertension) Code(s): I10 - ESSENTIAL (PRIMARY) HYPERTENSION Status: Chronic Qualifiers: Hypertension type: essential hypertension Qualified Code(s): I10 - Essential (primary) hypertension - Plan * E. Coli sepsis due to UTI- continue Meropenem for now. the E. coli was sensitive to Zosyn as well, and could send him back to [place] on either depending on availability * DM - blood glucose is stable * BPH- stable- he is not a candidate for surgery * Cardiomyopathy- stable.
[2017-09-06] MEDS: Melatonin 3 MG TAB PO SCH (21:00)
[2017-09-06] MEDS: MEROPENEM 1 GM/50 ML 1 GM in Premix Bag 1 BAG IVPB SCH (22:21)
[2017-09-07] MEDS: Sodium Chloride 0.9% 1,000 ML IV SCH ×3 (01:15→15:13)
[2017-09-07] MEDS: MEROPENEM 1 GM/50 ML 1 GM in Premix Bag 1 BAG IVPB SCH ×2 (05:17→12:59)
[2017-09-07] MEDS: metFORMIN 500 MG TAB PO SCH (08:34)
[2017-09-07] MEDS: Pregabalin 50 MG CAP PO SCH (08:35)
[2017-09-07] MEDS: Finasteride 5 MG TAB PO SCH (08:35)
[2017-09-07] MEDS: Potassium Chloride 10 MEQ TAB PO SCH (08:35)
[2017-09-07] MEDS: Furosemide 20 MG TAB PO SCH (08:35)
[2017-09-07] MEDS: Famotidine 20 MG TAB PO SCH (08:35)
[2017-09-07] MEDS: Tamsulosin HCl 0.4 MG CAP PO SCH (08:35)
[2017-09-07] MEDS: Heparin 5,000 UNITS/ML VIAL SC SCH ×2 (08:35→15:14)
[2017-09-07] MEDS: Insulin Detemir 100 UNITS/ML 15 UNITS in Pre-Filled Syringe 1 EACH SC SCH (08:36)
[2017-09-07] MEDS: MEROPENEM 1 GM/50 ML 1 GM in Admixture Fee 1 EACH IVPB SCH (11:04)
[2017-09-07 11:43] VITALS: TEMP 97.5
--- NOTE | 2017-09-07 12:00 | DIS ---
DATE OF ADMISSION: 09/02/2017 DATE OF DISCHARGE: 09/07/2017 PRIMARY CARE PHYSICIAN: Derik Guevara M.D. DISCHARGE DISPOSITION: Home. PRIMARY DISCHARGE DIAGNOSES: 1. Escherichia coli sepsis from urinary tract infection. 2. Urinary tract infection. 3. Benign prostatic hypertrophy with urinary retention. 4. Diabetes mellitus, type 2. 5. Hypertension. 6. Dyslipidemia. 7. Cardiomyopathy. DISCHARGE MEDICATIONS: Include Flomax 0.4 mg twice a day, Lyrica 50 mg twice daily, potassium chlori de 10 mEq daily, metformin 500 mg 2 tablets twice a day, meropenem 1 gram IV q.8 h. for a total of 30 days, melatonin 3 mg at bedtime, Levemir insulin 20 units twice a day, Lasix 20 mg daily, finasterid e 5 mg daily, Pepcid 20 mg twice daily, and Tylenol 650 mg q.6 h. as needed. PROCEDURES DONE DURING ADMISSION: The patient had a CT scan of the abdomen and pelvis and this showe d some reticular nodular densities in the lung base, which could be related to an atypical infectious process and enlarged lobulated heterogeneity of the prostate. CODE STATUS: FULL CODE. ALLERGIES: To milk which is not a true allergy. It was more of dislike. HOSPITAL COURSE: Mr. Louis is a pleasant 62-year-old gentleman who was brought [place] the [place] with fever and bacteremia. The patient was found to have E. coli bacteremia and sepsis and that he had fever and tachycardia. The patient was seen by Urology during the hospital stay. With regards t o possibly performing a transurethral prostatectomy; however, the urologist did not feel that he woul d be a good candidate for that or other surgical procedure and recommended continued IV antibiotics f or a prolonged period, preferably for 30 days. The patient had a PICC line placed in order to accomp lindy this and is being transitioned back to the detention with IV meropenem.
[2017-09-07 15:11] VITALS: BP 164/85
== END 2017-09-07 15:43 | DRG 872 ==
LOC: ERS 20:36 → 2SE 09-02 → 2NO 09-04 18:24 → T4-B 09-05 13:30
PROVIDERS: ADMIT Internal Medicine; ATTEND Internal Medicine
PROC: 02HV33Z Insertion of Infusion Device into Superior Vena Cava, Percutaneous Approach (ICD-10-PCS; principal; 2017-09-05)
PROC: B548ZZA Ultrasonography of Superior Vena Cava, Guidance (ICD-10-PCS; 2017-09-05)
DX: A41.51 Sepsis due to Escherichia coli [E. coli] (principal); I42.9 Cardiomyopathy, unspecified; E11.65 Type 2 diabetes mellitus with hyperglycemia; N10 Acute pyelonephritis; I10 Essential (primary) hypertension; E78.5 Hyperlipidemia, unspecified; F17.210 Nicotine dependence, cigarettes, uncomplicated; N52.9 Male erectile dysfunction, unspecified; E87.6 Hypokalemia; N40.1 Benign prostatic hyperplasia with lower urinary tract symptoms; N53.14 Retrograde ejaculation; Z91.19 Patient's noncompliance with other medical treatment and regimen
CPT/HCPCS: 36415; 36416; 36569; 71045; 74177; 80048; 80053; 80202; 81001; 81003; 81015; 83605; 85025; 87040; 87077; 87086; 87149; 87186; 87804; 93005; 96361; 96365; 96366; 96367; 96375; A4216; C1751; G8978-GP-CI; G8979-GP-CI; G8980-GP-CI; G8987-GO-CK; G8988-GO-CI; G8996-GN-CI; G8997-GN-CH; J0360; J1644; J1815; J2185; J2405; J2543; J3370; J7050